=== PATIENT | female | born 1985 | race Caucasian/White ===

== ENCOUNTER 2020-11-29 10:25 | Inpatient (IN) | payer OTHER ==
[2020-11-29] MEDS ORDERED: LORazepam 2 MG/ML INJ IV PRN (10:55)
[2020-11-29] MEDS ORDERED: THIAMINE 100 MG/ML 2 ML VIAL IM STA (10:55)
[2020-11-29] MEDS ORDERED: LORazepam 2 MG/ML INJ IV STA (11:01)
[2020-11-29] MEDS ORDERED: SODIUM CHLORIDE 0.9% 1,000 ML IV STA (11:01)
--- NOTE | 2020-11-29 11:03 | ED ---
General Adult HPI - General Chief complaint: Psychiatric Symptoms Stated complaint: depression Time Seen by Provider: 11/29/20 10:33 Source: patient Mode of arrival: ambulatory Limitations: no limitations - History of Present Illness Initial comments: Dictation was produced using [employer] dictation software. please excuse any grammatical, word or spelling errors. Chief Complaint: 35-year-old female presents emergency department for alcohol withdrawal History of Present Illness: 35-year-old female she drinks a fifth of vodka daily for the last several years. She went to her parents, days ago to try and get some help to quit drinking. Patient states he tried to quit cold turkey. Her last alcohol intake was 2 hours ago. She called EMS. There is concern that perhaps patient had a seizure today. Patient has decreased appetite. Patient has some mild anterior chest pain that is worse with deep inspiration, movement and palpation to the area. The ROS documented in this emergency department record has been reviewed and co nfirmed by me. Those systems with pertinent positive or negative responses have been documented in the HPI. All other systems are other negative and/or noncontributory. PHYSICAL EXAM: General Impression: Alert and oriented x3, not in acute distress, tremulous HEENT: Normocephalic atraumatic, extra-ocular movements intact, pupils equal and reactive to light bilaterally, mucous membranes moist. Cardiovascular: Tachycardic Chest: Able to complete full sentences, no retractions, no tachypnea, tenderness to palpation of the left anterior chest Abdomen: abdomen soft, non-tender, non-distended, no organomegaly Musculoskeletal: Pulses present and equal in all extremities, no peripheral edema Motor: no focal deficits noted Neurological: CN II-XII grossly intact, no focal motor or sensory deficits noted Skin: Intact with no visualized rashes Psych: Normal affect and mood ED course: 35-year-old female presents to the emergency department for alcohol withdrawal symptoms and musculoskeletal chest pain. Vital signs upon arrival shows heart rate of 135, rest of vital signs within acceptable limits. Patient showing signs of withdrawal at the bedside. Laboratory evaluation obtained. CBC is unremarkable. Metabolic panel shows sodium 129, potassium 2.5. Patient started intravenous fluids and given parenteral potassium. Rest of labs unremarkable. Patient given Valium. Patient's improved at the bedside. Patient be admitted for alcohol withdrawal. EKG interpretation: Ventricular rate 1:30, sinus tachycardia, ID interval 1:30, QRS 82, QTc 463. No ID prolongation, no ST or T-wave changes noted. - Related Data Home Medications Medication Instructions Recorded Confirmed No Known Home Medications 11/29/20 11/29/20 Allergies Allergy/AdvReac Type Severity Reaction Status Date / Time No Known Allergies Allergy Verified 11/29/20 12:08 Review of Systems ROS Statement: Those systems with pertinent positive or pertinent negative responses have been documented in the HPI. ROS Other: All systems not noted in ROS Statement are negative. Past Medical History Past Medical History: No Reported History Past Surgical History: No Surgical Hx Reported Past Psychological History: Depression Smoking Status: Never smoker Past Alcohol Use History: Abuse, Daily Past Drug Use History: Marijuana General Exam Limitations: no limitations Course Vital Signs 11/29/20 11/29/20 11/29/20 10:29 11:30 12:00 Temperature 98.8 F Pulse Rate 135 H 135 H 144 H Respiratory 18 25 H 21 Rate Blood Pressure 144/112 122/88 133/102 O2 Sat by Pulse 98 95 96 Oximetry 11/29/20 12:30 Temperature Pulse Rate 138 H Respiratory 22 Rate Blood Pressure 135/107 O2 Sat by Pulse 94 L Oximetry Medical Decision Making - Lab Data Result diagrams: 11/29/20 11:32 11/29/20 11:32 Lab Results 11/29/20 11/29/20 Range/Units 11:32 11:32 WBC 6.6 (3.8-10.6) k/uL RBC 4.59 (3.80-5.40) m/uL Hgb 15.7 (11.4-16.0) gm/dL Hct 45.7 (34.0-46.0) % MCV 99.7 (80.0-100.0) fL MCH 34.2 (25.0-35.0) pg MCHC 34.3 (31.0-37.0) g/dL RDW 14.4 (11.5-15.5) % Plt Count 180 (150-450) k/uL MPV 10.9 Neutrophils % 84 % Lymphocytes % 8 % Monocytes % 7 % Eosinophils % 0 % Basophils % 0 % Neutrophils # 5.6 (1.3-7.7) k/uL Lymphocytes # 0.5 L (1.0-4.8) k/uL Monocytes # 0.5 (0-1.0) k/uL Eosinophils # 0.0 (0-0.7) k/uL Basophils # 0.0 (0-0.2) k/uL Macrocytosis Slight Sodium 129 L (137-145) mmol/L Potassium 2.5 L* (3.5-5.1) mmol/L Chloride 82 L (98-107) mmol/L Carbon Dioxide 30 (22-30) mmol/L Anion Gap 17 mmol/L BUN 11 (7-17) mg/dL Creatinine 0.73 (0.52-1.04) mg/dL Est GFR (CKD-EPI)AfAm >90 (>60 ml/min/1.73 sqM) Est GFR (CKD-EPI)NonAf >90 (>60 ml/min/1.73 sqM) Glucose 142 H (74-99) mg/dL Calcium 9.8 (8.4-10.2) mg/dL HCG, Quant <2.4 mIU/mL Serum Alcohol <10 mg/dL Disposition Clinical Impression: Alcohol withdrawal syndrome Disposition: ADMITTED IP TO THIS [facility] Condition: Fair Referrals: None,Stated [Primary Care Provider] - 1-2 days
[2020-11-29 11:50] LABS: Basophils % (A) 0 %; Eosinophils % (A) 0 %; HCT 45.7 % (34.0-46.0); HGB 15.7 gm/dL (11.4-16.0); Lymphocytes # (A) 0.5 k/uL (1.0-4.8); Lymphocytes % (A) 8 %; MCH 34.2 pg (25.0-35.0); MCHC 34.3 g/dL (31.0-37.0); MCV 99.7 fL (80.0-100.0); Macrocytosis Slight; Mean Platelet Volume 10.9; Monocytes # (A) 0.5 k/uL (0-1.0); Monocytes % (A) 7 %; Neutrophils # (A) 5.6 k/uL (1.3-7.7); Neutrophils % (A) 84 %; Platelet Count 180 k/uL (150-450); RBC 4.59 m/uL (3.80-5.40); RDW 14.4 % (11.5-15.5); WBC 6.6 k/uL (3.8-10.6)
[2020-11-29 12:13] LABS: African American GFR (CKD) >90 (>60 ml/min/1.73 sqM); Alcohol <10 mg/dL; Anion Gap 17 mmol/L; Blood Urea Nitrogen 11 mg/dL (7-17); Calcium 9.8 mg/dL (8.4-10.2); Carbon Dioxide 30 mmol/L (22-30); Chloride 82 mmol/L (98-107); Glucose 142 mg/dL (74-99); Non-African American GFR(CKD) >90 (>60 ml/min/1.73 sqM); Sodium 129 mmol/L (137-145)
[2020-11-29 12:28] LABS: HCG,Quantitative Serum <2.4 mIU/mL
[2020-11-29 12:34] LABS: Potassium 2.5 mmol/L (3.5-5.1)
[2020-11-29] MEDS ORDERED: NALOXONE 0.4 MG/ML 1 ML VIAL IV PRN (13:14)
[2020-11-29] MEDS: SODIUM CHLORIDE 0.9% 1,000 ML IV SCH ×2 (13:45→20:45)
[2020-11-29] MEDS: LORazepam 2 MG/ML INJ IV PRN ×2 (13:52→18:10)
[2020-11-29] MEDS: POTASSIUM CHLORIDE 20 MEQ in WATER FOR INJECTION 1 100ML.BAG IVPB SCH ×2 (13:52→20:45)
[2020-11-29] MEDS ORDERED: POTASSIUM CHLORIDE ER 20 MEQ TAB.ER PO STA (14:30)
[2020-11-29] MEDS: THIAMINE 100 MG TAB PO SCH (18:10)
--- NOTE | 2020-11-29 18:14 | P.HPIM ---
History of Present Illness H&P Date: 11/29/20 Chief Complaint: ETOH withdrawal 35 year old woman with history of ETOH abuse presented with nausea, vomiting. Patient says that she has been drinking excessively this year, about 1 pint of hard liquor daily. She has been quite depressed which is driving her alcohol abuse. Two days ago she stopped drinking cold turkey in an attempt to quit drinking, and then started to develop nausea, vomiting symptoms. She has not been able to keep any food down because of this. She has also felt anxious and jittery. She reports burning chest pain, but denies fevers, chills, palps, syncope, presyncope, abd pain, diarrhea, constipation, dysuria, dyschezia, numbness/weakness. In the ER, she is afebrile, tachycardic to 140s with EKG in sinus rhythm. Labs remarkable for hypokalemia to 2.5, hyponatremia. No LFTs were drawn. Review of Systems All Systems reviewed and pertinent positives and negatives noted in HPI, all other symptoms are negative Past Medical History Past Medical History: No Reported History History of Any Multi-Drug Resistant Organisms: None Reported Past Surgical History: No Surgical Hx Reported Past Anesthesia/Blood Transfusion Reactions: No Reported Reaction Past Psychological History: Depression Smoking Status: Never smoker Past Alcohol Use History: Abuse, Daily Past Drug Use History: Marijuana - Past Family History Father Family Medical History: Hyperlipidemia Medications and Allergies Home Medications Medication Instructions Recorded Confirmed Type No Known Home Medications 11/29/20 11/29/20 History Allergies Allergy/AdvReac Type Severity Reaction Status Date / Time No Known Allergies Allergy Verified 11/29/20 12:08 Physical Exam Osteopathic Statement: *. No significant issues noted on an osteopathic str uctural exam other than those noted in the History and Physical/Consult. Vitals: Vital Signs Temp Pulse Pulse Resp BP BP Pulse Ox 11/29/20 17:30 98.5 F 145 H 16 120/87 94 L 11/29/20 16:21 137 H 18 135/99 94 L 11/29/20 13:30 144 H 18 135/96 91 L 11/29/20 13:00 140 H 22 128/100 92 L 11/29/20 12:30 138 H 22 135/107 94 L 11/29/20 12:00 144 H 21 133/102 96 11/29/20 11:30 135 H 25 H 122/88 95 11/29/20 10:29 98.8 F 135 H 18 144/112 98 Intake and Output 11/29/20 11/29/20 11/29/20 06:59 14:59 22:59 Intake Total 236 Balance 236 Intake: Oral 236 Other: # Voids 1 Weight 81.647 kg 81.647 kg Gen: awake, alert HEENT: normocephalic, atraumatic, good hearing acuity, moist mucous membranes Resp: good air exchange, breathing comfortably with no accessory muscle use, clear to auscultation bilaterally without wheezes or crackles CVS: good distal perfusion x 4, regular rhythm, tachycardic, no murmurs GI: soft, NTTP, ND : no SPT, no CVAT, page catheter not present MSK: no pitting edema, no clubbing Neuro: non-focal, moving all extremities Psych: cooperative, euthymic mood Results CBC & Chem 7: 11/29/20 11:32 11/29/20 11:32 Labs: Abnormal Lab Results - Last 24 Hours (Table) 11/29/20 11/29/20 Range/Units 11:32 11:32 Lymphocytes # 0.5 L (1.0-4.8) k/uL Sodium 129 L (137-145) mmol/L Potassium 2.5 L* (3.5-5.1) mmol/L Chloride 82 L (98-107) mmol/L Glucose 142 H (74-99) mg/dL Thrombosis Risk Factor Assmnt - Choose All That Apply Any of the Below Risk Factors Present?: No Other Risk Factors: No Thrombosis Risk Factor Assessment Level: Very Low Risk Assessment and Plan Assessment: Alcohol withdrawal syndrome Alcohol abuse disorder -Admit to observation, telemetry -CIWA protocol + Ativan when necessary -Thiamine, folate, multivitamin -Alcohol cessation education -LFTs, pending Hypokalemia Hyponatremia -Replete and monitor daily Depression -Outpatient follow-up for initiation of SSRI Patient is full code DVT prophylaxis not indicated
[2020-11-29 19:30] LABS: Albumin/Globulin Ratio 1.2; Bilirubin, Conjugated 1.4 mg/dL (0.0-0.3); Bilirubin,Unconjugated 1.5 mg/dL (0.0-1.1); Globulin 3.4 g/dL; Total Bilirubin 4.3 mg/dL (0.2-1.3); Total Protein 7.4 g/dL (6.3-8.2)
[2020-11-29 23:51] LABS: ALT 96 U/L (4-34); AST 287 U/L (14-36); African American GFR (CKD) >90 (>60 ml/min/1.73 sqM); Albumin 3.2 g/dL (3.5-5.0); Albumin/Globulin Ratio 1.1; Alkaline Phosphatase 175 U/L (38-126); Anion Gap 5 mmol/L; Blood Urea Nitrogen 13 mg/dL (7-17); Calcium 9.1 mg/dL (8.4-10.2); Carbon Dioxide 34 mmol/L (22-30); Chloride 89 mmol/L (98-107); Globulin 2.9 g/dL; Glucose 85 mg/dL (74-99); Non-African American GFR(CKD) >90 (>60 ml/min/1.73 sqM); Sodium 128 mmol/L (137-145); Total Bilirubin 3.8 mg/dL (0.2-1.3); Total Protein 6.1 g/dL (6.3-8.2)
[2020-11-29] MEDS ORDERED: Potassium Replacement Protocol 1 EACH MISC MISCELLANE PRN (23:57)
[2020-11-30] MEDS: POTASSIUM CHLORIDE ER 20 MEQ TAB.ER PO SCH ×5 (00:57→08:40)
[2020-11-30] MEDS: LORazepam 2 MG/ML INJ IV PRN ×3 (02:57→22:28)
[2020-11-30 04:39] LABS: ALT 89 U/L (4-34); AST 249 U/L (14-36); African American GFR (CKD) >90 (>60 ml/min/1.73 sqM); Albumin/Globulin Ratio 1.1; Alkaline Phosphatase 161 U/L (38-126); Anion Gap 5 mmol/L; Blood Urea Nitrogen 11 mg/dL (7-17); Calcium 8.8 mg/dL (8.4-10.2); Carbon Dioxide 32 mmol/L (22-30); Chloride 92 mmol/L (98-107); Globulin 2.8 g/dL; Glucose 79 mg/dL (74-99); Non-African American GFR(CKD) >90 (>60 ml/min/1.73 sqM); Potassium 2.8 mmol/L (3.5-5.1); Sodium 129 mmol/L (137-145); Total Bilirubin 3.5 mg/dL (0.2-1.3); Total Protein 5.8 g/dL (6.3-8.2)
[2020-11-30] MEDS ORDERED: Potassium Replacement Protocol 1 EACH MISC MISCELLANE PRN (04:52)
[2020-11-30] MEDS: SODIUM CHLORIDE 0.9% 1,000 ML IV SCH ×3 (05:16→20:41)
--- NOTE | 2020-11-30 08:38 | US ---
EXAMINATION TYPE: US abdomen complete DATE OF EXAM: 11/30/2020 COMPARISON: NONE CLINICAL HISTORY: RUQ pain, ETOH hepatitis suspected. EXAM MEASUREMENTS: Liver Length: 18.3 cm Gallbladder Wall: 0.2 cm CBD: 0.5 cm Spleen: 7.9 cm Right Kidney: 11.6 x 4.1 x 5.1 cm Left Kidney: 11.5 x 5.1 x 5.3 cm Pancreas: visualized portions wnl Liver: enlarged, difficult to penetrate Gallbladder: stone with shadowing, sluldge noted Evidence for sonographic Ojeda's sign: No CBD: wnl Spleen: wnl Right Kidney: No hydronephrosis or masses seen Left Kidney: No hydronephrosis or masses seen Upper IVC: wnl Abd Aorta: wnl There is diffuse echogenicity of the liver and the liver is mildly enlarged. There is no focal intrah epatic mass.. The intrahepatic portion of the IVC and proximal abdominal aorta are within normal limits. There is a gallstone but the gallbladder is not distended and the wall the gallbladder is not thickened. There is no biliary ductal dilatation.. The visualized portions of the pancreas are homogenous. The spleen is unremarkable. Kidneys are sym metric and free of hydronephrosis. No renal lesions are seen. IMPRESSION: 1. Cholelithiasis. 2. Mild hepatomegaly with diffuse increased echogenicity within the liver but no focal liver mass.
[2020-11-30] MEDS: LACTATED RINGERS 1,000 ML IV SCH ×5 (08:40→17:30)
[2020-11-30] MEDS: THIAMINE 100 MG TAB PO SCH ×2 (08:40→17:33)
--- NOTE | 2020-11-30 10:37 | P.PN ---
Subjective Progress Note Date: 11/30/20 Pt doing well today. No complaints. HRs improving. No pain. Objective - Vital Signs Vital signs: Vital Signs Temp 98.3 F 11/30/20 07:33 Pulse 118 H 11/30/20 08:00 Resp 19 11/30/20 08:00 BP 147/78 11/30/20 07:33 Pulse Ox 97 11/30/20 07:33 Intake & Output 11/29/20 11/30/20 11/30/20 18:59 06:59 18:59 Intake Total 236 Balance 236 Weight 81.647 kg Intake: Oral 236 Other: Voiding Method Toilet Toilet # Voids 1 2 2 - Exam Gen: awake, alert HEENT: normocephalic, atraumatic, good hearing acuity, moist mucous membranes Resp: good air exchange, breathing comfortably with no accessory muscle use, clear to auscultation bilaterally without wheezes or crackles CVS: good distal perfusion x 4, regular rhythm, tachycardic, no murmurs GI: soft, NTTP, ND : no SPT, no CVAT, page catheter not present MSK: no pitting edema, no clubbing Neuro: non-focal, moving all extremities Psych: cooperative, euthymic mood - Labs CBC & Chem 7: 11/29/20 11:32 11/30/20 03:52 Labs: Abnormal Lab Results - Last 24 Hours (Table) 11/29/20 11/29/20 11/29/20 Range/Units 11:32 11:32 11:32 Lymphocytes # 0.5 L (1.0-4.8) k/uL Sodium 129 L (137-145) mmol/L Potassium 2.5 L* (3.5-5.1) mmol/L Chloride 82 L (98-107) mmol/L Carbon Dioxide (22-30) mmol/L Glucose 142 H (74-99) mg/dL Total Bilirubin 4.3 H (0.2-1.3) mg/dL Conjugated Bilirubin 1.4 H (0.0-0.3) mg/dL Unconjugated Bilirubin 1.5 H (0.0-1.1) mg/dL AST 503 H (14-36) U/L ALT 121 H (4-34) U/L Alkaline Phosphatase 238 H (38-126) U/L Total Protein (6.3-8.2) g/dL Albumin (3.5-5.0) g/dL 11/29/20 11/30/20 Range/Units 23:18 03:52 Lymphocytes # (1.0-4.8) k/uL Sodium 128 L 129 L (137-145) mmol/L Potassium 3.0 L 2.8 L (3.5-5.1) mmol/L Chloride 89 L 92 L (98-107) mmol/L Carbon Dioxide 34 H 32 H (22-30) mmol/L Glucose (74-99) mg/dL Total Bilirubin 3.8 H 3.5 H (0.2-1.3) mg/dL Conjugated Bilirubin (0.0-0.3) mg/dL Unconjugated Bilirubin (0.0-1.1) mg/dL AST 287 H 249 H (14-36) U/L ALT 96 H 89 H (4-34) U/L Alkaline Phosphatase 175 H 161 H (38-126) U/L Total Protein 6.1 L 5.8 L (6.3-8.2) g/dL Albumin 3.2 L 3.0 L (3.5-5.0) g/dL Assessment and Plan Assessment: Alcohol withdrawal syndrome Alcohol abuse disorder Alcoholic Hepatitis -Admit to observation, telemetry -[facility] protocol + Ativan when necessary -Thiamine, folate, multivitamin -Alcohol cessation education -LFTs show elevated liver enzymes in cholestatic pattern with elevated bilirubin -RUQ US demonstrates increased echogenicity and size of the liver Hypokalemia Hyponatremia -Replete and monitor daily Depression -Outpatient follow-up for initiation of SSRI Patient is full code DVT prophylaxis not indicated
[2020-11-30] MEDS ORDERED: LACTATED RINGERS 1,000 ML IV SCH (17:30)
[2020-11-30] MEDS ORDERED: SODIUM CHLORIDE 0.9% 1,000 ML IV ONE (20:32)
[2020-11-30 23:07] LABS: ALT 85 U/L (4-34); AST 257 U/L (14-36); African American GFR (CKD) >90 (>60 ml/min/1.73 sqM); Albumin 3.3 g/dL (3.5-5.0); Albumin/Globulin Ratio 1.1; Alkaline Phosphatase 183 U/L (38-126); Anion Gap 6 mmol/L; Blood Urea Nitrogen 6 mg/dL (7-17); Calcium 9.1 mg/dL (8.4-10.2); Carbon Dioxide 29 mmol/L (22-30); Chloride 97 mmol/L (98-107); Glucose 105 mg/dL (74-99); Magnesium 1.4 mg/dL (1.6-2.3); Non-African American GFR(CKD) >90 (>60 ml/min/1.73 sqM); Potassium 3.3 mmol/L (3.5-5.1); Sodium 132 mmol/L (137-145); Total Protein 6.3 g/dL (6.3-8.2)
[2020-12-01] MEDS: POTASSIUM CHLORIDE ER 20 MEQ TAB.ER PO SCH ×2 (00:22→01:39)
[2020-12-01] MEDS: MAGNESIUM SULFATE-D5W PMX 1 GM in DEXTROSE/WATER 1 100ML.BAG IVPB SCH ×3 (00:22→03:12)
[2020-12-01] MEDS: LORazepam 2 MG/ML INJ IV PRN ×2 (00:23→05:31)
[2020-12-01] MEDS: SODIUM CHLORIDE 0.9% 1,000 ML IV SCH ×2 (03:12→07:38)
[2020-12-01 05:57] LABS: ALT 74 U/L (4-34); AST 245 U/L (14-36); African American GFR (CKD) >90 (>60 ml/min/1.73 sqM); Alkaline Phosphatase 180 U/L (38-126); Anion Gap 6 mmol/L; Blood Urea Nitrogen 4 mg/dL (7-17); Calcium 8.2 mg/dL (8.4-10.2); Carbon Dioxide 28 mmol/L (22-30); Chloride 96 mmol/L (98-107); Globulin 2.9 g/dL; Glucose 111 mg/dL (74-99); Magnesium 2.5 mg/dL (1.6-2.3); Non-African American GFR(CKD) >90 (>60 ml/min/1.73 sqM); Potassium 3.3 mmol/L (3.5-5.1); Sodium 130 mmol/L (137-145); Total Bilirubin 3.5 mg/dL (0.2-1.3); Total Protein 5.9 g/dL (6.3-8.2)
[2020-12-01] MEDS: THIAMINE 100 MG TAB PO SCH ×2 (07:38→17:11)
[2020-12-01] MEDS ORDERED: ASPIRIN 325 MG TAB PO STA (09:56)
[2020-12-01] MEDS ORDERED: HEPARIN SODIUM 1,000 UN/ML (10ML VL) IV ONE (09:57)
[2020-12-01] MEDS ORDERED: HEPARIN SODIUM 1,000 UN/ML (10ML VL) IV PRN (09:57)
[2020-12-01] MEDS: METOPROLOL TARTRATE 25 MG TAB PO SCH ×2 (10:18→19:41)
[2020-12-01] MEDS: HEPARIN SOD,PORK IN 0.45% NACL 25,000 UNIT in 0.45% NACL 1 250ML.BAG IV SCH (10:19)
[2020-12-01 11:05] LABS: Basophils % (A) 0 %; Eosinophils % (A) 0 %; HCT 40.8 % (34.0-46.0); HGB 14.2 gm/dL (11.4-16.0); Lymphocytes # (A) 1.6 k/uL (1.0-4.8); Lymphocytes % (A) 21 %; MCHC 34.7 g/dL (31.0-37.0); MCV 101.1 fL (80.0-100.0); Macrocytosis Slight; Mean Platelet Volume 10.2; Monocytes # (A) 0.4 k/uL (0-1.0); Monocytes % (A) 6 %; Neutrophils # (A) 5.4 k/uL (1.3-7.7); Neutrophils % (A) 71 %; Platelet Count 155 k/uL (150-450); RBC 4.04 m/uL (3.80-5.40); RDW 15.5 % (11.5-15.5); WBC 7.6 k/uL (3.8-10.6)
[2020-12-01 11:30] LABS: INR 1.4 (<1.2); Prothrombin Time 13.9 sec (9.0-12.0)
[2020-12-01 11:52] LABS: Partial Thromboplastin Time >200.0 sec (22.0-30.0)
--- NOTE | 2020-12-01 13:16 | P.PN ---
Subjective Progress Note Date: 12/01/20 No new complaints, no symptoms other than mild cough. No chest pain. No palps, no dyspnea. Still tachy to 140s at rest. EKG with TWI in lateral leads. ASA loaded, statin, betablocker, echo, cardiology consult. Objective - Vital Signs Vital signs: Vital Signs Temp 99.2 F 12/01/20 07:12 Pulse 137 H 12/01/20 08:00 Resp 18 12/01/20 08:00 BP 135/87 12/01/20 07:12 Pulse Ox 93 L 12/01/20 07:12 Intake & Output 11/30/20 12/01/20 12/01/20 18:59 06:59 18:59 Intake Total 29.637 Balance 29.637 Intake: Intake, IV Titration 29.637 Amount Heparin Sod,Pork in 0.45% 29.637 NaCl 25,000 unit In 0.45 % NaCl 1 250ml.bag @ 18 UNITS/KG/HR 14.696 mls/hr IV .Q17H1M [facility] Rx#: [id number] Other: Voiding Method Toilet Toilet Toilet # Voids 2 2 - Exam Gen: awake, alert HEENT: normocephalic, atraumatic, good hearing acuity, moist mucous membranes Resp: good air exchange, breathing comfortably with no accessory muscle use, clear to auscultation bilaterally without wheezes or crackles CVS: good distal perfusion x 4, regular rhythm, tachycardic, no murmurs GI: soft, NTTP, ND : no SPT, no CVAT, page catheter not present MSK: no pitting edema, no clubbing Neuro: non-focal, moving all extremities Psych: cooperative, euthymic mood - Labs CBC & Chem 7: 12/01/20 10:32 12/01/20 05:21 Labs: Abnormal Lab Results - Last 24 Hours (Table) 11/30/20 12/01/20 12/01/20 Range/Units 22:26 05:21 10:32 MCV 101.1 H (80.0-100.0) fL PT (9.0-12.0) sec INR (<1.2) APTT (22.0-30.0) sec Sodium 132 L 130 L (137-145) mmol/L Potassium 3.3 L 3.3 L (3.5-5.1) mmol/L Chloride 97 L 96 L (98-107) mmol/L BUN 6 L 4 L (7-17) mg/dL Glucose 105 H 111 H (74-99) mg/dL Calcium 8.2 L (8.4-10.2) mg/dL Magnesium 1.4 L 2.5 H (1.6-2.3) mg/dL Total Bilirubin 4.0 H 3.5 H (0.2-1.3) mg/dL AST 257 H 245 H (14-36) U/L ALT 85 H 74 H (4-34) U/L Alkaline Phosphatase 183 H 180 H (38-126) U/L Troponin I (0.000-0.034) ng/mL Total Protein 5.9 L (6.3-8.2) g/dL Albumin 3.3 L 3.0 L (3.5-5.0) g/dL 12/01/20 12/01/20 Range/Units 10:32 10:32 MCV (80.0-100.0) fL PT 13.9 H (9.0-12.0) sec INR 1.4 H (<1.2) APTT >200.0 H* (22.0-30.0) sec Sodium (137-145) mmol/L Potassium (3.5-5.1) mmol/L Chloride (98-107) mmol/L BUN (7-17) mg/dL Glucose (74-99) mg/dL Calcium (8.4-10.2) mg/dL Magnesium (1.6-2.3) mg/dL Total Bilirubin (0.2-1.3) mg/dL AST (14-36) U/L ALT (4-34) U/L Alkaline Phosphatase (38-126) U/L Troponin I 0.394 H* (0.000-0.034) ng/mL Total Protein (6.3-8.2) g/dL Albumin (3.5-5.0) g/dL Assessment and Plan Assessment: Sinus Tachycardia Elevated Troponin -monitor on telemetry, transfer to -cardiology consulted -trend troponins -ASA loaded, statin -heparin gtt -echo pending -EKG/Nitro PRN Alcohol withdrawal syndrome Alcohol abuse disorder Alcoholic Hepatitis -Admit to observation, telemetry -CIWA protocol + Ativan when necessary -Thiamine, folate, multivitamin -Alcohol cessation education -LFTs show elevated liver enzymes in cholestatic pattern with elevated bilirubin -RUQ US demonstrates increased echogenicity and size of the liver Hypokalemia Hyponatremia -Replete and monitor daily Depression -Outpatient follow-up for initiation of SSRI Patient is full code DVT prophylaxis not indicated
--- NOTE | 2020-12-01 13:41 | ECHOF ---
Referral Reason:abnormal EKG MEASUREMENTS -------- HEIGHT: 170.2 cm WEIGHT: 81.6 kg BP: 135/87 RVIDd: 2.5 cm (< 3.3) IVSd: 1.3 cm (0.6 - 1.1) LVIDd: 4.5 cm (3.9 - 5.3) LVPWd: 1.2 cm (0.6 - 1.1) IVSs: 1.7 cm LVIDs: 3.9 cm LVPWs: 1.7 cm LA Diam: 3.2 cm (2.7 - 3.8) LAESV Index (A-L): 18.76 ml/m Ao Diam: 3.2 cm (2.0 - 3.7) AV Cusp: 2.1 cm (1.5 - 2.6) MV EXCURSION: 21.866 mm (> 18.000) MV EF SLOPE: 279 mm/s (70 - 150) EPSS: 0.9 cm MV E Miles: 0.87 m/s MV DecT: 117 ms MV A Miles: 0.61 m/s MV E/A Ratio: 1.42 FINDINGS -------- Resting tachycardia (HR>100bpm). This was a technically adequate study. The left ventricular size is normal. There is mild concentric left ventricular hypertrophy. Overa ll left ventricular systolic function is severely impaired with, an EF < 20%. Predominanty apical h ypokinesis with basal sparing which may be seen in Takotsubo's cardiomyopathy. Clinical correlation recommended. Mid anterior LV wall motion is hypokinetic. Mid lateral LV wall motion is hypokine tic. Mid posterior LV wall motion is hypokinetic. Mid inferior LV wall motion is hypokinetic. Apical anterior LV wall motion is hypokinetic. Apical lateral LV wall motion is hypokinetic. Apical inferior LV wall motion is hypokinetic. Apical septum LV wall motion is hypokinetic. The right ventricle is normal in size. Normal LA size by volume 22+/-6 ml/m2. The right atrium is normal in size. Trace to mild aortic regurgitation. The mitral valve is normal. The tricuspid valve appears structurally normal. There is no pulmonic regurgitation present. The aortic root size is normal. Normal inferior vena cava with normal inspiratory collapse consistent with estimated right atrial pre ssure of 5 mmHg. There is no pericardial effusion. CONCLUSIONS -------- 1. The left ventricular size is normal. 2. There is mild concentric left ventricular hypertrophy. 3. Overall left ventricular systolic function is severely impaired with, an EF < 20%. 4. Predominanty apical hypokinesis with basal sparing which may be seen in Takotsubo's cardiomyopathy . Clinical correlation recommended. 5. Mid anterior LV wall motion is hypokinetic. 6. Mid lateral LV wall motion is hypokinetic. 7. Mid posterior LV wall motion is hypokinetic. 8. Mid inferior LV wall motion is hypokinetic. 9. Apical anterior LV wall motion is hypokinetic. 10. Apical lateral LV wall motion is hypokinetic. 11. Apical inferior LV wall motion is hypokinetic. 12. Apical septum LV wall motion is hypokinetic. 13. Trace to mild aortic regurgitation. 14. There is no pericardial effusion. RN DOCUMENT IMPROVEMENT: Randa Carlson RDCS
[2020-12-01] MEDS: FOLIC ACID 1 MG TAB PO SCH (17:11)
--- NOTE | 2020-12-01 18:08 | XR ---
EXAMINATION TYPE: XR chest 1V DATE OF EXAM: 12/01/2020 COMPARISON: NONE HISTORY: Abnormal cardiogram TECHNIQUE: Single view FINDINGS: There is no heart failure nor confluent pneumonic infiltrate. There is poor inspiration. Th ere is some elevation of the right diaphragm. There are chest leads. IMPRESSION: Mild subsegmental atelectasis right lung base. No obvious heart failure.
[2020-12-01] MEDS: ATORVASTATIN 40 MG TAB PO SCH (19:41)
[2020-12-01] MEDS ORDERED: METOPROLOL TARTRATE 12.5 MG TAB PO STA (21:30)
[2020-12-02] MEDS: HEPARIN SOD,PORK IN 0.45% NACL 25,000 UNIT in 0.45% NACL 1 250ML.BAG IV SCH ×2 (04:47→20:30)
[2020-12-02] MEDS: THIAMINE 100 MG TAB PO SCH ×2 (06:55→18:45)
[2020-12-02 08:20] LABS: HCT 41.3 % (34.0-46.0); HGB 13.8 gm/dL (11.4-16.0); MCH 35.1 pg (25.0-35.0); MCHC 33.5 g/dL (31.0-37.0); MCV 104.7 fL (80.0-100.0); Macrocytosis Moderate; Mean Platelet Volume 9.4; Platelet Count 139 k/uL (150-450); RBC 3.94 m/uL (3.80-5.40); WBC 5.7 k/uL (3.8-10.6)
[2020-12-02] MEDS: METOPROLOL TARTRATE 50 MG TAB PO SCH ×2 (08:27→21:59)
[2020-12-02] MEDS: FOLIC ACID 1 MG TAB PO SCH (08:27)
[2020-12-02] MEDS: LOSARTAN 25 MG TAB PO SCH (08:27)
[2020-12-02] MEDS: ASPIRIN 81 MG PO SCH (08:27)
--- NOTE | 2020-12-02 09:45 | P.CRDCN ---
History of Present Illness Consult date: 12/02/20 History of present illness: HISTORY OF PRESENT ILLNESS: This is a 35 year old female with a past medical history significant for alcohol abuse. Patient denies a previous cardiac history and does not see a merry go round attendant. We have been asked to see the patient in consultation for abnormal EKG. Patient examined at the bedside. Patient is admitted to the hospital secondary to alcohol withdrawal. Patient reports she usually drinks a fifth of Vodka daily. Her last drink was last Tuesday. Patient currently denies chest pain or pressure. She denies shortness of breath. She denies palpitations. Telemetry reveals atrial tachycardia. Echocardiogram completed reveals ejection fraction less than 20%, predominantly apical hypokinesis with basal sparing which may be Takotsubo cardiomyopathy, LV wall hypokinesis, and trace to mild aortic regurgitation. Chest x-ray reveals mild subsegmental atelectasis right lung base. No obvious heart failure. Laboratory data reveals WBC 5.7. Hemoglobin 13.8. Platelet count 139. Sodium 130. Potassium 3.3. BUN 4. Creatinine 0.62. Magnesium 2.5. AST 245. ALT 74. Troponin 0.394. 0.354. 0.361. Patient does not take any cardiac medications on an outpatient basis. She denies a family history of premature coronary artery disease REVIEW OF SYSTEMS: At the time of my exam: CONSTITUTIONAL: Denies fever or chills. HEENT: Denies blurred vision, vision changes, or eye pain. Denies hemoptysis CARDIOVASCULAR: Denies chest pain. Denies orthopnea. Denies PND. Denies palpitations RESPIRATORY: Denies shortness of breath. GASTROINTESTINAL: Denies abdominal pain. Denies nausea or vomiting. HEMATOLOGIC: Denies bleeding disorders. GENITOURINARY: Denies any blood in urine. SKIN: Denies pruitis. Denies rash. PHYSICAL EXAM: VITAL SIGNS: Reviewed. GENERAL: Well-developed in no acute distress. HEENT: Head is normocephalic. Pupils are equal, round. Sclerae anicteric. Mucous membranes of the mouth are moist. Neck supple. No JVD or thyromegaly LUNGS: Respirations even and unlabored. Lungs essentially clear to auscultation bilaterally. HEART: Tachycardic. Regular rate and rhythm. S1 and S2 heard. ABDOMEN: Soft. Nondistended. Nontender. EXTREMITIES: Normal range of motion. No clubbing or cyanosis. Peripheral pulses intact. No lower extremity edema NEUROLOGIC: Awake and alert. Oriented x 3. ASSESSMENT: Alcohol withdrawal disorder History of alcohol abuse Transaminitis NSTEMI, suspect Takotsubo cardiomyopathy Ectopic atrial tachycardia Hyponatremia Hypokalemia PLAN: Continue IV heparin Continue telemetry monitoring Continue current cardiac medications NPO at midnight Possible cardiac cath tomorrow with Dr. Loyola Further recommendations pending patient course Nurse practitioner note has been reviewed by physician. Signing provider agrees with the documented findings, assessment, and plan of care. Past Medical History Past Medical History: No Reported History History of Any Multi-Drug Resistant Organisms: None Reported Past Surgical History: No Surgical Hx Reported Past Anesthesia/Blood Transfusion Reactions: No Reported Reaction Past Psychological History: Depression Smoking Status: Never smoker Past Alcohol Use History: Abuse, Daily Past Drug Use History: Marijuana - Past Family History Father Family Medical History: Hyperlipidemia Medications and Allergies Home Medications Medication Instructions Recorded Confirmed Type No Known Home Medications 11/29/20 11/29/20 History Allergies Allergy/AdvReac Type Severity Reaction Status Date / Time No Known Allergies Allergy Verified 11/29/20 12:08 Physical Exam Vitals: Vital Signs Temp Pulse Resp BP Pulse Ox 12/02/20 04:40 98.4 F 126 H 18 121/78 95 12/02/20 00:05 98.4 F 119 H 17 111/77 95 12/01/20 19:30 98.3 F 132 H 18 120/91 99 12/01/20 16:00 137 H 111/74 98 12/01/20 13:00 132 H 105/87 95 Intake and Output 12/01/20 12/02/20 12/02/20 22:59 06:59 14:59 Intake Total 170.825 155.687 32.155 Balance 170.825 155.687 32.155 Intake: Intake, IV Titration 50.825 155.687 32.155 Amount Heparin Sod,Pork in 0.45% 50.825 155.687 32.155 NaCl 25,000 unit In 0.45 % NaCl 1 250ml.bag @ 18 UNITS/KG/HR 14.696 mls/hr IV .Q17H1M [facility] Rx#: [id number] Oral 120 Other: Voiding Method Toilet Toilet # Voids 1 1 Weight 88 kg Results 12/02/20 06:23 12/01/20 05:21 Cardiac Enzymes 12/01/20 12/01/20 12/01/20 Range/Units 10:32 14:00 16:54 Troponin I 0.394 H* 0.354 H* 0.361 H* (0.000-0.034) ng/mL Coagulation 12/01/20 12/01/20 12/01/20 Range/Units 10:32 16:54 23:41 PT 13.9 H (9.0-12.0) sec APTT >200.0 H* 37.5 H 46.5 H (22.0-30.0) sec 12/02/20 Range/Units 06:23 PT (9.0-12.0) sec APTT 57.5 H (22.0-30.0) sec CBC 12/01/20 12/02/20 Range/Units 10:32 06:23 WBC 7.6 5.7 (3.8-10.6) k/uL RBC 4.04 3.94 (3.80-5.40) m/uL Hgb 14.2 13.8 (11.4-16.0) gm/dL Hct 40.8 41.3 (34.0-46.0) % Plt Count 155 139 L (150-450) k/uL Current Medications Generic Name Dose Route Start Last Admin Trade Name Freq PRN Reason Stop Dose Admin Aspirin 81 mg 12/02/20 09:00 12/02/20 08:27 Aspirin 81 Mg PO 81 mg DAILY [facility] Administration Atorvastatin Calcium 40 mg 12/01/20 21:00 12/01/20 19:41 Atorvastatin 40 Mg Tab PO 40 mg HS F[facility]RICIO Administration Folic Acid 1 mg 12/01/20 15:00 12/02/20 08:27 Folic Acid 1 Mg Tab PO 1 mg DAILY FABRICIO Administration Heparin Sodium (Porcine) 0 unit 12/01/20 09:57 Heparin Sodium 1,000 Un/Ml (10ml Vl) IV PER PROTOCOL PRN Low PTT Protocol Heparin Sodium/Sodium Chloride 250 mls @ 14.696 mls/hr 12/01/20 10:00 12/02/20 07:06 25,000 unit/ Sodium Chloride IV 17 units/kg/hr .Q17H1M [facility] 13.88 mls/hr Titration Protocol 18 UNITS/KG/HR Lorazepam 1 mg 11/29/20 10:55 12/01/20 05:31 Lorazepam 2 Mg/Ml Inj IV 1 mg Q2HR PRN Administration CIWA 8 or 9 Lorazepam 1 mg 11/29/20 10:55 11/30/20 22:28 Lorazepam 2 Mg/Ml Inj IV 1 mg Q1HR PRN Administration CIWA 10 to 15 Losartan Potassium 12.5 mg 12/02/20 09:00 12/02/20 08:27 Losartan 25 Mg Tab PO 12.5 mg DAILY FABRICIO Administration Metoprolol Tartrate 50 mg 12/02/20 09:00 12/02/20 08:27 Metoprolol Tartrate 50 Mg Tab PO 50 mg BID F[facility]RICIO Administration Miscellaneous Information 1 each 11/29/20 23:57 Potassium Replacement Protocol 1 Each Misc MISCELLANE DAILY PRN Per Protocol Protocol Naloxone HCl 0.2 mg 11/29/20 13:14 Naloxone 0.4 Mg/Ml 1 Ml Vial IV Q2M PRN Opioid Reversal Thiamine HCl 100 mg 11/29/20 17:30 12/02/20 06:55 Thiamine 100 Mg Tab PO 100 mg BID-W/MEALS FABRICIO Administration Intake and Output 12/01/20 12/02/20 12/02/20 22:59 06:59 14:59 Intake Total 170.825 155.687 32.155 Balance 170.825 155.687 32.155 Intake: Intake, IV Titration 50.825 155.687 32.155 Amount Heparin Sod,Pork in 0.45% 50.825 155.687 32.155 NaCl 25,000 unit In 0.45 % NaCl 1 250ml.bag @ 18 UNITS/KG/HR 14.696 mls/hr IV .Q17H1M [facility] Rx#: [id number] Oral 120 Other: Voiding Method Toilet Toilet # Voids 1 1 Weight 88 kg 12/02/20 06:23 12/01/20 05:21
[2020-12-02 11:08] LABS: Eosinophils # (M) 0.06 k/uL (0-0.7); Lymphocytes # (M) 1.08 k/uL (1.0-4.8); Monocytes # (M) 0.23 k/uL (0-1.0); Neutrophils # (M) 4.33 k/uL (1.3-7.7); Neutrophils % (M) 76 %; Nucleated Red Blood Cells 0 /100 WBC (0-0); Total Cells Counted 100
--- NOTE | 2020-12-02 13:23 | P.PN ---
Subjective Progress Note Date: 12/02/20 No new complaints, No chest pain. No palps, no dyspnea. Still tachy to 130s at rest. Echo with EF < 20%; apical hypokinesis. Objective - Vital Signs Vital signs: Vital Signs Temp 98.2 F 12/02/20 08:00 Pulse 137 H 12/02/20 08:00 Resp 24 12/02/20 08:00 BP 118/90 12/02/20 08:00 Pulse Ox 93 L 12/02/20 08:00 Intake & Output 12/01/20 12/02/20 12/02/20 18:59 06:59 18:59 Intake Total 330.462 155.687 272.155 Balance 330.462 155.687 272.155 Weight 88 kg Intake: Intake, IV Titration 210.462 155.687 32.155 Amount Heparin Sod,Pork in 0.45% 80.462 155.687 32.155 NaCl 25,000 unit In 0.45 % NaCl 1 250ml.bag @ 18 UNITS/KG/HR 14.696 mls/hr IV .Q17H1M [facility] Rx#: [id number] Sodium Chloride 0.9% 1, 130 000 ml @ 130 mls/hr IV . Q7H42M [facility] Rx#:[id number] Oral 120 240 Other: Voiding Method Toilet Toilet # Voids 1 - Exam Gen: awake, alert HEENT: normocephalic, atraumatic, good hearing acuity, moist mucous membranes Resp: good air exchange, breathing comfortably with no accessory muscle use, clear to auscultation bilaterally without wheezes or crackles CVS: good distal perfusion x 4, regular rhythm, tachycardic, no murmurs GI: soft, NTTP, ND : no SPT, no CVAT, page catheter not present MSK: no pitting edema, no clubbing Neuro: non-focal, moving all extremities Psych: cooperative, euthymic mood - Labs CBC & Chem 7: 12/02/20 06:23 12/01/20 05:21 Labs: Abnormal Lab Results - Last 24 Hours (Table) 12/01/20 12/01/20 12/01/20 Range/Units 14:00 16:54 16:54 MCV (80.0-100.0) fL MCH (25.0-35.0) pg Plt Count (150-450) k/uL APTT 37.5 H (22.0-30.0) sec Troponin I 0.354 H* 0.361 H* (0.000-0.034) ng/mL 12/01/20 12/02/20 12/02/20 Range/Units 23:41 06:23 06:23 MCV 104.7 H (80.0-100.0) fL MCH 35.1 H (25.0-35.0) pg Plt Count 139 L (150-450) k/uL APTT 46.5 H 57.5 H (22.0-30.0) sec Troponin I (0.000-0.034) ng/mL Assessment and Plan Assessment: Ectopic Atrial Tachycardia NSTEMI likely secondary to Takatsubo Cardiomyopathy Acute Systolic Heart Failure, EF < 20% -monitor on telemetry, transfer to -cardiology consulted -trend troponins -ASA loaded, statin -heparin gtt -echo pending -EKG/Nitro PRN Alcohol withdrawal syndrome Alcohol abuse disorder Alcoholic Hepatitis -Admit to observation, telemetry -CIWA protocol + Ativan when necessary -Thiamine, folate, multivitamin -Alcohol cessation education -LFTs show elevated liver enzymes in cholestatic pattern with elevated bilirubin -RUQ US demonstrates increased echogenicity and size of the liver Hypokalemia Hyponatremia -Replete and monitor daily Depression -Outpatient follow-up for initiation of SSRI Patient is full code DVT prophylaxis not indicated
[2020-12-02] MEDS ORDERED: DEXTROSE 5% IN WATER 100 ML with AMIODARONE 150 MG IV ONE (14:40)
[2020-12-02] MEDS: ATORVASTATIN 40 MG TAB PO SCH (21:58)
[2020-12-02] MEDS: AMIODARONE 200 MG TAB PO SCH (21:59)
[2020-12-03] MEDS: HEPARIN SOD,PORK IN 0.45% NACL 25,000 UNIT in 0.45% NACL 1 250ML.BAG IV SCH (01:04)
[2020-12-03] MEDS: LOSARTAN 25 MG TAB PO SCH ×2 (06:28→21:03)
[2020-12-03] MEDS: THIAMINE 100 MG TAB PO SCH ×2 (06:28→18:03)
[2020-12-03] MEDS: METOPROLOL TARTRATE 50 MG TAB PO SCH ×3 (06:28→21:03)
[2020-12-03] MEDS: AMIODARONE 200 MG TAB PO SCH ×2 (06:28→21:03)
[2020-12-03] MEDS: FOLIC ACID 1 MG TAB PO SCH (06:29)
[2020-12-03 08:20] LABS: ALT 83 U/L (4-34); AST 235 U/L (14-36); African American GFR (CKD) >90 (>60 ml/min/1.73 sqM); Albumin 3.2 g/dL (3.5-5.0); Alkaline Phosphatase 189 U/L (38-126); Anion Gap 7 mmol/L; Blood Urea Nitrogen 4 mg/dL (7-17); Carbon Dioxide 26 mmol/L (22-30); Chloride 102 mmol/L (98-107); Glucose 100 mg/dL (74-99); Non-African American GFR(CKD) >90 (>60 ml/min/1.73 sqM); Potassium 3.3 mmol/L (3.5-5.1); Sodium 135 mmol/L (137-145); Total Bilirubin 2.8 mg/dL (0.2-1.3); Total Protein 6.3 g/dL (6.3-8.2)
[2020-12-03] MEDS ORDERED: ATORVASTATIN 80 MG TAB PO STA (08:29)
[2020-12-03] MEDS ORDERED: ASPIRIN 325 MG TAB PO STA (08:29)
[2020-12-03] MEDS ORDERED: ALPRAZolam 0.25 MG TAB PO PRN (08:29)
[2020-12-03] MEDS ORDERED: NITROGLYCERIN SL TABS 0.4 MG TAB SUBLINGUAL PRN (08:29)
[2020-12-03] MEDS ORDERED: ALPRAZolam 0.5 MG TAB PO PRN (08:29)
[2020-12-03] MEDS ORDERED: SODIUM CHLORIDE 0.9% 1,000 ML in EMPTY BAG 1 BAG IV SCH (08:30)
[2020-12-03] MEDS: ASPIRIN 81 MG PO SCH (08:31)
[2020-12-03] MEDS: ATORVASTATIN 40 MG TAB PO SCH (08:32)
[2020-12-03] MEDS ORDERED: POTASSIUM CHLORIDE ER 20 MEQ TAB.ER PO STA (08:32)
--- NOTE | 2020-12-03 10:14 | P.PN ---
Subjective Progress Note Date: 12/03/20 HISTORY OF PRESENT ILLNESS: This is a 35 year old female with a past medical history significant for alcohol abuse. Patient denies a previous cardiac history and does not see a cardi ologist. We have been asked to see the patient in consultation for abnormal EKG. Patient examined at the bedside. Patient is admitted to the hospital secondary to alcohol withdrawal. Patient reports she usually drinks a fifth of Vodka daily. Her last drink was last Tuesday. Patient currently denies chest pain or pressure. She denies shortness of breath. She denies palpitations. Telemetry reveals atrial tachycardia. Echocardiogram completed reveals ejection fraction less than 20%, predominantly apical hypokinesis with basal sparing which may be Takotsubo cardiomyopathy, LV wall hypokinesis, and trace to mild aortic regurgitation. Chest x-ray reveals mild subsegmental atelectasis right lung base. No obvious heart failure. Laboratory data reveals WBC 5.7. Hemoglobin 13.8. Platelet count 139. Sodium 130. Potassium 3.3. BUN 4. Creatinine 0.62. Magnesium 2.5. AST 245. ALT 74. Troponin 0.394. 0.354. 0.361. Patient does not take any cardiac medications on an outpatient basis. She denies a family history of premature coronary artery disease 12/03/2020 Patient examined this morning at the bedside. Patient denies chest pain or pressure. She denies shortness of breath. She denies palpitations. Telemetry reveals atrial tachycardia with a heart rate around 110. PHYSICAL EXAM: VITAL SIGNS: Reviewed. GENERAL: Well-developed in no acute distress. HEENT: Head is normocephalic. Pupils are equal, round. Sclerae anicteric. Mucous membranes of the mouth are moist. Neck supple. No JVD or thyromegaly LUNGS: Respirations even and unlabored. Lungs essentially clear to auscultation bilaterally. HEART: Tachycardic. Regular rate and rhythm. S1 and S2 heard. ABDOMEN: Soft. Nondistended. Nontender. EXTREMITIES: Normal range of motion. No clubbing or cyanosis. Peripheral pulses intact. No lower extremity edema NEUROLOGIC: Awake and alert. Oriented x 3. ASSESSMENT: Alcohol withdrawal disorder History of alcohol abuse Transaminitis NSTEMI, suspect Takotsubo cardiomyopathy Ectopic atrial tachycardia Hyponatremia Hypokalemia PLAN: Continue telemetry monitoring Continue current cardiac medications Repeat EKG Replace potassium Patient to undergo cardiac cath today with Dr. Loyola Repeat limited echo tomorrow to re-assess LV function. Will make a decision regarding LifeVest pending repeat echo tomorrow. Further recommendations pending patient course Nurse practitioner note has been reviewed by physician. Signing provider agrees with the documented findings, assessment, and plan of care. Objective - Vital Signs Vital signs: Vital Signs Temp 98 F 12/03/20 03:22 Pulse 122 H 12/03/20 03:22 Resp 18 12/03/20 03:22 BP 128/93 12/03/20 03:22 Pulse Ox 98 12/03/20 03:22 Intake & Output 12/02/20 12/03/20 12/03/20 18:59 06:59 18:59 Intake Total 512.155 517.845 117.286 Output Total 0 0 Balance 512.155 517.845 117.286 Weight 89.1 kg Intake: Intake, IV Titration 32.155 217.845 117.286 Amount Heparin Sod,Pork in 0.45% 32.155 217.845 117.286 NaCl 25,000 unit In 0.45 % NaCl 1 250ml.bag @ 18 UNITS/KG/HR 14.696 mls/hr IV .Q17H1M [facility] Rx#: [id number] Oral 480 300 Output: Urine 0 0 Other: Voiding Method Toilet # Voids 1 - Labs CBC & Chem 7: 12/02/20 06:23 12/03/20 07:16 Labs: Abnormal Lab Results - Last 24 Hours (Table) 12/03/20 12/03/20 Range/Units 07:16 07:16 APTT 36.7 H (22.0-30.0) sec Sodium 135 L (137-145) mmol/L Potassium 3.3 L (3.5-5.1) mmol/L BUN 4 L (7-17) mg/dL Glucose 100 H (74-99) mg/dL Total Bilirubin 2.8 H (0.2-1.3) mg/dL AST 235 H (14-36) U/L ALT 83 H (4-34) U/L Alkaline Phosphatase 189 H (38-126) U/L Albumin 3.2 L (3.5-5.0) g/dL
--- NOTE | 2020-12-03 10:26 | P.PN ---
Subjective Progress Note Date: 12/03/20 No new complaints today. Pending [facility] today. Objective - Vital Signs Vital signs: Vital Signs Temp 98 F 12/03/20 03:22 Pulse 122 H 12/03/20 03:22 Resp 18 12/03/20 03:22 BP 128/93 12/03/20 03:22 Pulse Ox 98 12/03/20 03:22 Intake & Output 12/02/20 12/03/20 12/03/20 18:59 06:59 18:59 Intake Total 512.155 517.845 117.286 Output Total 0 0 Balance 512.155 517.845 117.286 Weight 89.1 kg Intake: Intake, IV Titration 32.155 217.845 117.286 Amount Heparin Sod,Pork in 0.45% 32.155 217.845 117.286 NaCl 25,000 unit In 0.45 % NaCl 1 250ml.bag @ 18 UNITS/KG/HR 14.696 mls/hr IV .Q17H1M [facility] Rx#: [id number] Oral 480 300 Output: Urine 0 0 Other: Voiding Method Toilet # Voids 1 - Exam Gen: awake, alert HEENT: normocephalic, atraumatic, good hearing acuity, moist mucous membranes Resp: good air exchange, breathing comfortably with no accessory muscle use, clear to auscultation bilaterally without wheezes or crackles CVS: good distal perfusion x 4, regular rhythm, tachycardic, no murmurs GI: soft, NTTP, ND : no SPT, no CVAT, page catheter not present MSK: no pitting edema, no clubbing Neuro: non-focal, moving all extremities Psych: cooperative, euthymic mood - Labs CBC & Chem 7: 12/02/20 06:23 12/03/20 07:16 Labs: Abnormal Lab Results - Last 24 Hours (Table) 12/03/20 12/03/20 Range/Units 07:16 07:16 APTT 36.7 H (22.0-30.0) sec Sodium 135 L (137-145) mmol/L Potassium 3.3 L (3.5-5.1) mmol/L BUN 4 L (7-17) mg/dL Glucose 100 H (74-99) mg/dL Total Bilirubin 2.8 H (0.2-1.3) mg/dL AST 235 H (14-36) U/L ALT 83 H (4-34) U/L Alkaline Phosphatase 189 H (38-126) U/L Albumin 3.2 L (3.5-5.0) g/dL Assessment and Plan Assessment: Ectopic Atrial Tachycardia NSTEMI likely secondary to Takatsubo Cardiomyopathy Acute Systolic Heart Failure, EF < 20% -monitor on telemetry, transfer to -cardiology consulted -trend troponins -ASA loaded, statin -heparin gtt -echo with EF < 20%, mid-apical hypokinesis, basal sparing c/w takatsubo -EKG/Nitro PRN Alcohol withdrawal syndrome Alcohol abuse disorder Alcoholic Hepatitis -Admit to observation, telemetry -CIWA protocol + Ativan when necessary -Thiamine, folate, multivitamin -Alcohol cessation education -LFTs show elevated liver enzymes in cholestatic pattern with elevated bilirubin -RUQ US demonstrates increased echogenicity and size of the liver Hypokalemia Hyponatremia -Replete and monitor daily Depression -Outpatient follow-up for initiation of SSRI Patient is full code DVT prophylaxis not indicated
[2020-12-03 10:55] LABS: Glucose,Whole Blood 88 mg/dL (75-99)
[2020-12-03] MEDS ORDERED: LIDOCAINE 1% INJ 10MG/ML (20 ML MDV) ONE (11:06)
[2020-12-03] MEDS ORDERED: HEPARIN SODIUM 1,000 UN/ML (10ML VL) ONE (11:07)
[2020-12-03] MEDS ORDERED: VERAPAMIL 2.5 MG/ML 2 ML AMP ONE (11:07)
[2020-12-03] MEDS ORDERED: MIDAZOLAM 2 MG/2 ML VIAL IV ONE (11:25)
[2020-12-03] MEDS ORDERED: LIDOCAINE 1% INJ 10MG/ML (20 ML MDV) SQ ONE (11:30)
[2020-12-03] MEDS ORDERED: VERAPAMIL SYRINGE (5 MG/10 ML) INTRAARTER ONE (11:32)
[2020-12-03] MEDS ORDERED: HEPARIN SODIUM 1,000 UN/ML (10ML VL) IV ONE (11:34)
[2020-12-03] MEDS ORDERED: FUROSEMIDE 10 MG/ML 4 ML VIAL ONE (11:39)
[2020-12-03] MEDS ORDERED: FUROSEMIDE 10 MG/ML 4 ML VIAL IV ONE (11:48)
[2020-12-03] MEDS ORDERED: IOPAMIDOL-370 100ML BTL INJ ONE (11:48)
[2020-12-03] MEDS ORDERED: IV FLUID CONTINUATION 1,000 ML IV ONE (11:49)
[2020-12-03] MEDS ORDERED: SODIUM CHLORIDE 0.9% 1,000 ML IV SCH (12:30)
--- NOTE | 2020-12-03 13:26 | CC ---
CARDIAC CATHETERIZATION REPORT DATE OF SERVICE: 12/03/2020 PROCEDURE: Left heart catheterization and coronary angiography. PERFORMED BY: Dr. Neena Loyola. Moderate conscious sedation time was 13 minutes. Patient was administered Versed. Oxygen saturation, hemodynamics, and EKG were monitored closely. CLINICAL INFORMATION: Connie Lambert is a 35-year-old lady without significant past medical history, but for the last 1-1/2 years or more she has been drinking alcohol excessively, mostly vodka unlimited amount. She knew that she had a problem and she tried to withdraw herself, developed rapid heartbeat, dizziness, lightheadedness and came into the hospital, was found to be in sinus tachycardia with heart failure. She was diuresed and echocardiogram revealed ejection fraction of 20%. There was a question of mild troponin elevation and possible takotsubo type picture, but echo was more consistent with a probable cardiomyopathy of nonischemic type. After stabilizing her, she was advised cardiac cath and brought in for the procedure after due discussion regarding the rationale, risks, benefits, and options. PROCEDURE NOTE: Under local anesthesia and strict aseptic precautions, a 6-Frisian introducer was placed in the right radial artery. Using a 3.5 left and 4.0 right Jaimee catheters, I performed coronary angiography and the same right catheter was used to check LV pressures. LV gram was not performed. The sheath was taken out and TR band applied as per protocol. Saturation of the fingers of the right hand was about 94%. CARDIAC CATHETERIZATION FINDINGS: The left ventricular end-diastolic pressure was about 22-23 mmHg. No gradient across aortic valve. CORONARY ANGIOGRAPHY FINDINGS: RIGHT CORONARY ARTERY:large dominant vessel. No significant disease. Bifurcates into a large PDA and PLV. LEFT MAIN CORONARY ARTERY: This is a short patent vessel that trifurcates into LAD,circumflex and ramus intermedius. No significant disease in the left main. LEFT ANTERIOR DESCENDING CORONARY ARTERY: Good caliber vessel extends along the anterior wall, tortuous has minor irregularities no significant disease. RAMUS INTERMEDIUS:good caliber, good distribution vessel. Minor irregularities. No significant disease. LEFT POSTERIOR CIRCUMFLEX CORONARY ARTERY: Nondominant, good caliber, good distribution vessel, has minor irregularities, gives off a large left atrial circumflex branch. Left ventriculogram was not performed. FINAL IMPRESSION: This patient has elevated filling pressures. No gradient across aortic valve. She has a right dominant system. No significant obstructive CAD. She probably has a nonischemic cardiomyopathy. RECOMMENDATIONS: Findings were discussed with the patient. I am recommending that we will optimize her anti-heart failure management. She will need a Life Vest. Advised to quit alcohol and hopefully she will be discharged the next 48 hours if she remains stable. NASIR / MANINDERN: [id number] /
[2020-12-03] MEDS: FUROSEMIDE 10 MG/ML 2 ML VIAL IV SCH ×2 (16:05→23:52)
[2020-12-03] MEDS: HEPARIN SODIUM,PORCINE/PF 5,000 UNIT/0.5 ML SYRINGE SQ SCH (21:03)
[2020-12-03] MEDS: ATORVASTATIN 10 MG TAB PO SCH (21:03)
[2020-12-04] MEDS: THIAMINE 100 MG TAB PO SCH ×2 (06:01→15:26)
[2020-12-04] MEDS ORDERED: HEPARIN SODIUM,PORCINE 2,500 UNIT in SODIUM CHLORIDE 0.9% 250 ML IRRIGATION PRN (07:00)
[2020-12-04] MEDS ORDERED: HEPARIN SODIUM,PORCINE 10,000 UNIT in SODIUM CHLORIDE 0.9% 1,000 ML IRRIGATION PRN (07:00)
[2020-12-04 08:03] LABS: Basophils # (A) 0.1 k/uL (0-0.2); Basophils % (A) 1 %; Eosinophils # (A) 0.1 k/uL (0-0.7); Eosinophils % (A) 1 %; HGB 13.6 gm/dL (11.4-16.0); Lymphocytes # (A) 1.5 k/uL (1.0-4.8); Lymphocytes % (A) 21 %; MCH 34.4 pg (25.0-35.0); MCHC 32.4 g/dL (31.0-37.0); MCV 106.3 fL (80.0-100.0); Macrocytosis Moderate; Monocytes # (A) 0.7 k/uL (0-1.0); Monocytes % (A) 9 %; Neutrophils # (A) 4.8 k/uL (1.3-7.7); Neutrophils % (A) 66 %; Platelet Count 215 k/uL (150-450); RBC 3.95 m/uL (3.80-5.40); RDW 15.3 % (11.5-15.5); WBC 7.3 k/uL (3.8-10.6)
[2020-12-04 08:17] LABS: African American GFR (CKD) >90 (>60 ml/min/1.73 sqM); Anion Gap 10 mmol/L; Blood Urea Nitrogen 7 mg/dL (7-17); Calcium 9.3 mg/dL (8.4-10.2); Carbon Dioxide 26 mmol/L (22-30); Chloride 97 mmol/L (98-107); Glucose 115 mg/dL (74-99); Magnesium 1.8 mg/dL (1.6-2.3); Non-African American GFR(CKD) >90 (>60 ml/min/1.73 sqM); Potassium 3.4 mmol/L (3.5-5.1); Sodium 133 mmol/L (137-145)
[2020-12-04] MEDS: SPIRONOLACTONE 25 MG TAB PO SCH (08:31)
[2020-12-04] MEDS: ASPIRIN 81 MG PO SCH (08:32)
[2020-12-04] MEDS: METOPROLOL TARTRATE 50 MG TAB PO SCH ×3 (08:32→21:37)
[2020-12-04] MEDS: AMIODARONE 200 MG TAB PO SCH ×2 (08:32→21:37)
[2020-12-04] MEDS: FOLIC ACID 1 MG TAB PO SCH (08:32)
[2020-12-04] MEDS: HEPARIN SODIUM,PORCINE/PF 5,000 UNIT/0.5 ML SYRINGE SQ SCH ×2 (08:33→21:39)
[2020-12-04] MEDS: FUROSEMIDE 10 MG/ML 2 ML VIAL IV SCH ×3 (08:33→21:39)
[2020-12-04 10:13] VITALS: BMI 29.9
--- NOTE | 2020-12-04 10:13 | P.PN ---
Subjective Progress Note Date: 12/04/20 Pt sitting in bed, resting comfortably. No complaints at this time. Denies chest pain, dyspnea, nausea, vomiting. Objective - Vital Signs Vital signs: Vital Signs Temp 98.8 F 12/04/20 07:45 Pulse 121 H 12/04/20 07:45 Resp 16 12/04/20 07:45 BP 116/74 12/04/20 07:45 Pulse Ox 99 12/04/20 07:45 Intake & Output 12/03/20 12/04/20 12/04/20 18:59 06:59 18:59 Intake Total 557.286 300 420 Balance 557.286 300 420 Weight 86.9 kg Intake: IV 200 Intake, IV Titration 117.286 Amount Heparin Sod,Pork in 0.45% 117.286 NaCl 25,000 unit In 0.45 % NaCl 1 250ml.bag @ 18 UNITS/KG/HR 14.696 mls/hr IV .Q17H1M [facility] Rx#: [id number] Oral 240 300 420 Other: Voiding Method Toilet # Voids 2 1 - Exam Gen: awake, alert HEENT: normocephalic, atraumatic, good hearing acuity, moist mucous membranes Resp: good air exchange, breathing comfortably with no accessory muscle use, clear to auscultation bilaterally without wheezes or crackles CVS: good distal perfusion x 4, regular rhythm, tachycardic, no murmurs GI: soft, NTTP, ND : no SPT, no CVAT, page catheter not present MSK: no pitting edema, no clubbing Neuro: non-focal, moving all extremities Psych: cooperative, euthymic mood - Labs CBC & Chem 7: 12/04/20 07:39 12/04/20 07:39 Labs: Abnormal Lab Results - Last 24 Hours (Table) 12/04/20 12/04/20 Range/Units 07:39 07:39 MCV 106.3 H (80.0-100.0) fL Sodium 133 L (137-145) mmol/L Potassium 3.4 L (3.5-5.1) mmol/L Chloride 97 L (98-107) mmol/L Glucose 115 H (74-99) mg/dL Assessment and Plan Assessment: Ectopic Atrial Tachycardia NSTEMI likely secondary to Takatsubo Cardiomyopathy Acute Systolic Heart Failure, EF < 20% -monitor on telemetry, transfer to -cardiology consulted -trend troponins, downtrending -ASA loaded, statin -heparin gtt discontinued -echo with EF < 20%, mid-apical hypokinesis, basal sparing c/w takatsubo -consider repeat echo in 24-48 hours -EKG/Nitro PRN -Losartan, metoprolol, spironolactone, amiodarone -pending lifevest placement Alcohol withdrawal syndrome Alcohol abuse disorder Alcoholic Hepatitis versus Congestive Hepatopathy -Admit to observation, telemetry -CIWA protocol + Ativan when necessary -Thiamine, folate, multivitamin -Alcohol cessation education -LFTs show elevated liver enzymes in cholestatic pattern with elevated bilirubin -RUQ US demonstrates increased echogenicity and size of the liver Hypokalemia Hyponatremia -Replete and monitor daily Depression -Outpatient follow-up for initiation of SSRI Patient is full code DVT prophylaxis not indicated
--- NOTE | 2020-12-04 10:20 | ECHOF ---
Referral Reason:reassess LV function MEASUREMENTS -------- HEIGHT: 170.2 cm WEIGHT: 88.9 kg BP: RVIDd: 1.9 cm (< 3.3) IVSd: 1.5 cm (0.6 - 1.1) LVIDd: 4.7 cm (3.9 - 5.3) LVPWd: 1.3 cm (0.6 - 1.1) IVSs: 1.7 cm LVIDs: 4.2 cm LVPWs: 1.6 cm FINDINGS -------- Limited Study The left ventricular size is normal. There is mild concentric left ventricular hypertrophy. There is severe global hypokinesis of LV . Overall left ventricular systolic function is severely impair ed with, an EF between 20 - 25 %. There is no pericardial effusion. CONCLUSIONS -------- 1. The left ventricular size is normal. 2. There is mild concentric left ventricular hypertrophy. 3. There is severe global hypokinesis of LV . 4. Overall left ventricular systolic function is severely impaired with, an EF between 20 - 25 %. 5. There is no pericardial effusion. [employer] TECHNICIAN: Marissa Colindres, CS
[2020-12-04] MEDS: POTASSIUM CHLORIDE ER 20 MEQ TAB.ER PO SCH ×3 (11:20→15:26)
[2020-12-04] MEDS ORDERED: MAGNESIUM SULFATE-D5W PMX 1 GM in DEXTROSE/WATER 1 100ML.BAG IVPB ONE (11:21)
--- NOTE | 2020-12-04 11:45 | PN ---
PROGRESS NOTE This lady has nonischemic cardiomyopathy with alcoholism. Cardiac catheterization yesterday revealed no significant obstructive CAD, elevated filling pressures. I placed her on [id number] medication. She is doing better. Potassium is low at 3.3. We will supplement the potassium and also magnesium. LifeVest has been ordered. I will increase activity, switch her to oral Lasix tomorrow and plan to discharge her on LifeVest. Her right radial site is clean and dry with a good pulse. Vitals are stable. No JVD. S1-S2 heard normally. No significant murmurs. Clear lungs. Abdomen is soft. Lower extremities reveal trace edema. Central nervous system grossly within normal limits. Patient has been counseled to quit alcohol and LifeVest has been ordered. Hopefully discharge tomorrow or day after. MMODL / IJN: [id number] /
[2020-12-04] MEDS: LOSARTAN 25 MG TAB PO SCH (21:37)
[2020-12-04] MEDS: ATORVASTATIN 10 MG TAB PO SCH (21:38)
[2020-12-05] MEDS: THIAMINE 100 MG TAB PO SCH ×2 (06:31→16:33)
[2020-12-05 08:42] LABS: African American GFR (CKD) >90 (>60 ml/min/1.73 sqM); Anion Gap 8 mmol/L; Blood Urea Nitrogen 9 mg/dL (7-17); Calcium 9.7 mg/dL (8.4-10.2); Carbon Dioxide 27 mmol/L (22-30); Chloride 97 mmol/L (98-107); Glucose 145 mg/dL (74-99); Non-African American GFR(CKD) >90 (>60 ml/min/1.73 sqM); Potassium 3.5 mmol/L (3.5-5.1); Sodium 132 mmol/L (137-145)
[2020-12-05 08:45] LABS: Basophils % (A) 1 %; Eosinophils # (A) 0.1 k/uL (0-0.7); Eosinophils % (A) 1 %; HCT 39.3 % (34.0-46.0); HGB 13.2 gm/dL (11.4-16.0); Lymphocytes # (A) 1.3 k/uL (1.0-4.8); Lymphocytes % (A) 23 %; MCH 34.9 pg (25.0-35.0); MCHC 33.7 g/dL (31.0-37.0); MCV 103.7 fL (80.0-100.0); Macrocytosis Moderate; Mean Platelet Volume 9.5; Monocytes # (A) 0.6 k/uL (0-1.0); Monocytes % (A) 10 %; Neutrophils # (A) 3.8 k/uL (1.3-7.7); Neutrophils % (A) 64 %; Platelet Count 252 k/uL (150-450); RBC 3.79 m/uL (3.80-5.40); RDW 15.7 % (11.5-15.5); WBC 5.9 k/uL (3.8-10.6)
[2020-12-05] MEDS ORDERED: POTASSIUM CHLORIDE ER 20 MEQ TAB.ER PO SCH ×2 (09:00→21:00)
[2020-12-05] MEDS ORDERED: FUROSEMIDE 10 MG/ML 4 ML VIAL IV STA (09:04)
[2020-12-05] MEDS: SPIRONOLACTONE 25 MG TAB PO SCH (09:43)
[2020-12-05] MEDS: ASPIRIN 81 MG PO SCH (09:43)
[2020-12-05] MEDS: METOPROLOL TARTRATE 50 MG TAB PO SCH ×2 (09:44→21:41)
[2020-12-05] MEDS: AMIODARONE 200 MG TAB PO SCH ×2 (09:45→21:41)
[2020-12-05] MEDS: FOLIC ACID 1 MG TAB PO SCH (09:45)
[2020-12-05] MEDS: HEPARIN SODIUM,PORCINE/PF 5,000 UNIT/0.5 ML SYRINGE SQ SCH ×2 (09:45→21:41)
[2020-12-05] MEDS ORDERED: METOPROLOL TARTRATE 50 MG TAB PO STA (10:08)
[2020-12-05] MEDS: FUROSEMIDE 10 MG/ML 2 ML VIAL IV SCH (11:21)
[2020-12-05] MEDS: POTASSIUM CHLORIDE ER 20 MEQ TAB.ER PO SCH ×2 (12:40→16:33)
--- NOTE | 2020-12-05 13:32 | PN ---
PROGRESS NOTE HISTORY: This is a 35-year-old lady with alcoholism, came into the hospital with heart failure and rapid heart rate with atrial tachycardia. Cardiac cath revealed no obstructive CAD. Heart failure persists. On current medical therapy she is improving a lot. She has no chest pain or shortness of breath but she has tachycardia with mild activity. I will check a thyroid function test. Continue beta cong which I will increase the dose and also Lasix and Aldactone. Prognosis is poor. A life vest has been ordered. PHYSICAL EXAM: Vital signs stable. Heart rate is about 110 but regular and sinus. Blood pressure is 118/70. JVD of 1 cm. No carotid bruit. S1-S2 heard normally. Tachycardia. No significant murmurs. Clear lungs. Abdomen is soft, nontender. Lower extremities reveal normal pulses. Central nervous system normal. Right radial site is clean and dry with a good pulse. PLAN: Continue current medications, increase beta cong, check thyroid function. Possible discharge tomorrow. MMODL / IJN: [id number] /
--- NOTE | 2020-12-05 15:27 | P.PN ---
Subjective patient was found to be tachycardic this am at rest with RH in the 110-120's. She has been asymptomtic however, no chest pain, no dyspne, no palpitations, no presyncope. Lopressor has increased today per cardiology, awaiting arrival of life vest. possible DC home tomorrow Objective - Vital Signs Vital signs: Vital Signs Temp 98 F 12/05/20 12:00 Pulse 85 12/05/20 12:00 Resp 18 12/05/20 12:00 BP 92/64 12/05/20 12:00 Pulse Ox 97 12/05/20 12:00 Intake & Output 12/04/20 12/05/20 12/05/20 18:59 06:59 18:59 Intake Total 780 180 Output Total 1400 850 Balance 780 -1400 -670 Weight 86.9 kg 86.3 kg Intake: Oral 780 180 Output: Urine 1400 850 Other: Voiding Method Toilet Toilet Toilet # Voids 1 1 # Bowel Movements 1 - Exam Gen: awake, alert, oriented, in NAD HEENT: normocephalic, atraumatic, moist mucous membranes Resp: good air exchange, breathing comfortably with no accessory muscle use, clear to auscultation bilaterally without wheezes or crackles CVS: good distal perfusion x 4, regular rhythm, tachycardic, no murmurs GI: soft, non tender, non distended, normal bowel sounds MSK: no pitting edema, no clubbing Neuro: non-focal, moving all extremities - Labs CBC & Chem 7: 12/05/20 08:17 12/05/20 08:17 Labs: Abnormal Lab Results - Last 24 Hours (Table) 12/05/20 12/05/20 Range/Units 08:17 08:17 RBC 3.79 L (3.80-5.40) m/uL MCV 103.7 H (80.0-100.0) fL RDW 15.7 H (11.5-15.5) % Sodium 132 L (137-145) mmol/L Chloride 97 L (98-107) mmol/L Glucose 145 H (74-99) mg/dL Assessment and Plan Plan: # NSTEMI secondary to nonischemic cardiopathy -Cardiac catheterization revealed no coronary stenosis -Troponin has been trending down, heparin drip has been discontinued -Ejection fraction 2024% with mid apical hypokinesis -Patient will need a LifeVest which will be delivered today -Continue losartan, metoprolol, spironolactone, amiodarone # Atrial tachycardia -Most likely exacerbated by alcohol withdrawal symptoms, with underlying severe cardiomyopathy -Patient was started on metoprolol as admission, heart rate was found to be elevated this morning at rest. Metoprolol dose has been increased per cardiology -Continue amiodarone, check thyroid function test # Alcohol withdrawal syndrome -Improving, no significant signs of withdrawal of the last 24-48 hours -Last drink was 6 days ago -Counseled on importance of cessation especially in the setting of severe cardiomyopathy which was most likely caused by alcoholism -Continue thiamine, folate, multivitamin # Elevated liver enzymes -Most likely secondary to chronic alcoholism, possible component of congestive hepatopathy Anticipated discharge home tomorrow Time with Patient: Less than 30
[2020-12-05] MEDS ORDERED: FUROSEMIDE 40 MG TAB PO SCH (16:00)
[2020-12-05] MEDS ORDERED: METOPROLOL TARTRATE 25 MG TAB PO SCH (16:00)
[2020-12-05 16:41] VITALS: RESP 16
[2020-12-05] MEDS: ATORVASTATIN 10 MG TAB PO SCH (21:41)
[2020-12-05] MEDS: LOSARTAN 25 MG TAB PO SCH (23:46)
[2020-12-06] MEDS: THIAMINE 100 MG TAB PO SCH (06:44)
[2020-12-06] MEDS ORDERED: POTASSIUM CHLORIDE ER 20 MEQ TAB.ER PO SCH (09:00)
[2020-12-06] MEDS ORDERED: FUROSEMIDE 20 MG TAB PO SCH (09:00)
[2020-12-06 09:05] LABS: Basophils % (A) 1 %; Eosinophils # (A) 0.1 k/uL (0-0.7); Eosinophils % (A) 1 %; HCT 38.9 % (34.0-46.0); HGB 12.6 gm/dL (11.4-16.0); Lymphocytes # (A) 1.1 k/uL (1.0-4.8); Lymphocytes % (A) 18 %; MCH 34.6 pg (25.0-35.0); MCHC 32.5 g/dL (31.0-37.0); MCV 106.8 fL (80.0-100.0); Macrocytosis Moderate; Mean Platelet Volume 10.8; Monocytes # (A) 0.7 k/uL (0-1.0); Monocytes % (A) 11 %; Neutrophils # (A) 4.1 k/uL (1.3-7.7); Neutrophils % (A) 67 %; Platelet Count 280 k/uL (150-450); RBC 3.64 m/uL (3.80-5.40); RDW 14.8 % (11.5-15.5); WBC 6.1 k/uL (3.8-10.6)
[2020-12-06 09:23] LABS: ALT 89 U/L (4-34); AST 191 U/L (14-36); African American GFR (CKD) >90 (>60 ml/min/1.73 sqM); Albumin 3.3 g/dL (3.5-5.0); Alkaline Phosphatase 156 U/L (38-126); Anion Gap 8 mmol/L; Blood Urea Nitrogen 11 mg/dL (7-17); Calcium 10.2 mg/dL (8.4-10.2); Carbon Dioxide 30 mmol/L (22-30); Chloride 96 mmol/L (98-107); Glucose 131 mg/dL (74-99); Magnesium 1.8 mg/dL (1.6-2.3); Non-African American GFR(CKD) >90 (>60 ml/min/1.73 sqM); Potassium 4.1 mmol/L (3.5-5.1); Sodium 134 mmol/L (137-145); Total Bilirubin 1.5 mg/dL (0.2-1.3); Total Protein 6.4 g/dL (6.3-8.2)
[2020-12-06 09:53] VITALS: TEMP 98.4
[2020-12-06] MEDS: HEPARIN SODIUM,PORCINE/PF 5,000 UNIT/0.5 ML SYRINGE SQ SCH (09:53)
[2020-12-06] MEDS: AMIODARONE 200 MG TAB PO SCH (09:54)
[2020-12-06] MEDS: SPIRONOLACTONE 25 MG TAB PO SCH (09:54)
[2020-12-06] MEDS: METOPROLOL TARTRATE 50 MG TAB PO SCH (09:54)
[2020-12-06] MEDS: ASPIRIN 81 MG PO SCH (09:54)
[2020-12-06] MEDS: FOLIC ACID 1 MG TAB PO SCH (09:54)
--- NOTE | 2020-12-06 10:40 | PN ---
PROGRESS NOTE This lady has nonischemic cardiomyopathy, ejection fraction of less than 20%. Yesterday I diuresed her aggressively. She dropped her blood pressure, but this morning pressure is 118/70, pulse rate is about 92. She has tachycardia with mild activity. Will continue beta blockers, reduced oral dose of Lasix and reduced potassium. Continue losartan at bedtime and beta blockers. Vitals are stable. No JVD. S1, S2 heard normally. Lungs are clear. Abdomen is soft, nontender. Right radial site is clean and dry with a good pulse. Abdomen is soft. Lower extremities reveal palpable pulses. No edema. Central nervous system is normal. Patient can be discharged on LifeVest, and I will see her in 2 weeks. Discharge instructions given. MMODL / IJN: [id number] /
[2020-12-06 15:08] VITALS: BP 108/76; PULSE 90
--- NOTE | 2020-12-07 15:08 | P.DS ---
Providers Date of admission: 11/29/20 13:14 Expected date of discharge: 12/06/20 Attending physician: Sadaf Vo Consults: 12/01/20 09:57 Consult Physician Stat Consulting Provider: Esa Ragland Consult Reason/Comments: Abnormal EKG Do you want consulting provider notified?: Yes Primary care physician: Stated None - Discharge Diagnosis(es) (1) Cardiomyopathy Status: Acute Priority: High Hospital Course: HPI from admission on 11/29: 35 year old woman with history of ETOH abuse presented with nausea, vomiting. Patient says that she has been drinking excessively this year, about 1 pint of hard liquor daily. She has been quite depressed which is driving her alcohol abuse. Two days ago she stopped drinking cold turkey in an attempt to quit drinking, and then started to develop nausea, vomiting symptoms. She has not been able to keep any food down because of this. She has also felt anxious and jittery. She reports burning chest pain, but denies fevers, chills, palps, syncope, presyncope, abd pain, diarrhea, constipation, dysuria, dyschezia, numbness/weakness In the ER, she is afebrile, tachycardic to 140s with EKG in sinus rhythm. Labs remarkable for hypokalemia to 2.5, hyponatremia. No LFTs were drawn. Hospital Course: patient was treated with IV Ativan for alcohol withdrawal syndrome, although her symptoms are relatively mild and likely resolved a few days prior to discharge. She was counseled extensively on the importance of alcohol cessation especially in the setting of her severe cardiomyopathy. Troponins were elevated on admission but trended down, she was started on heparin drip until she underwent cardiac catheterization by cardiology which revealed no artery stenosis, but she does have an ejection fraction of 20-25% with mild apical hypokinesis. She was started on losartan, metoprolol, spironolactone, and amiodarone as she had developed persistent atrial tachycardia which required escalating doses of beta blockers. given her low ejection fraction, patient was discharged home with a LifeVest. Recommend close follow-up with cardiology over the following few weeks Assessment: Gen: awake, alert, oriented, in NAD HEENT: normocephalic, atraumatic, moist mucous membranes Resp: good air exchange, breathing comfortably with no accessory muscle use, clear to auscultation bilaterally without wheezes or crackles CVS: good distal perfusion x 4, regular rhythm, tachycardic, no murmurs GI: soft, non tender, non distended, normal bowel sounds MSK: no pitting edema, no clubbing Neuro: non-focal, moving all extremities Procedures: cardiac catheterization Patient Condition at Discharge: Good Plan - Discharge Summary Discharge Rx Participant: Yes New Discharge Prescriptions: New Spironolactone [Aldactone] 12.5 mg PO DAILY 30 Days #15 tab Amiodarone [Cordarone] 200 mg PO BID 30 Days #60 tab Furosemide [Lasix] 20 mg PO DAILY 30 Days #30 tab Aspirin 81 mg PO DAILY 30 Days #30 tab Losartan [Cozaar] 25 mg PO HS 30 Days #30 tab Atorvastatin [Lipitor] 10 mg PO HS 30 Days #30 tab Metoprolol Tartrate [Lopressor] 50 mg PO TID 30 Days #90 tab No Action No Known Home Medications Discharge Medication List No Known Home Medications 11/29/20 [History] Amiodarone [Cordarone] 200 mg PO BID 30 Days #60 tab 12/06/20 [Rx] Aspirin 81 mg PO DAILY 30 Days #30 tab 12/06/20 [Rx] Atorvastatin [Lipitor] 10 mg PO HS 30 Days #30 tab 12/06/20 [Rx] Furosemide [Lasix] 20 mg PO DAILY 30 Days #30 tab 12/06/20 [Rx] Losartan [Cozaar] 25 mg PO HS 30 Days #30 tab 12/06/20 [Rx] Metoprolol Tartrate [Lopressor] 50 mg PO TID 30 Days #90 tab 12/06/20 [Rx] Spironolactone [Aldactone] 12.5 mg PO DAILY 30 Days #15 tab 12/06/20 [Rx] Follow up Appointment(s)/Referral(s): Roman Ambrocio MD [STAFF PHYSICIAN] - 1 Week (Option for primary physician, please call to schedule follow up and establish as primary. ) Rupert Loyola MD [STAFF PHYSICIAN] - 1 Week (Call office during business hours to schedule follow up appointments. ) Cat Velasco MD [STAFF PHYSICIAN] - 1 Week (Option for primary physician, please call to schedule follow up and establish as primary. ) None,Stated [Primary Care Provider] - 1-2 days [facility] Davide gonzalez [NON-STAFF] - 1 Week (Option for primary physician, please call to schedule follow up and establish as primary. ) Patient Instructions/Handouts: Dilated Cardiomyopathy (GEN), Abuse of Alcohol (DC), After Radial Heart Catheterization (GEN) Discharge Disposition: HOME SELF-CARE
== END 2020-12-06 16:28 | disposition home or self-care (01) | DRG 896 ==
LOC: EC 10:25 → 4SSUR 13:14 → 3SCARD 12-01 12:52
PROVIDERS: ADMIT Internal Medicine; ATTEND Internal Medicine
PROC: B2111ZZ Fluoroscopy of Multiple Coronary Arteries using Low Osmolar Contrast (ICD-10-PCS; 2020-12-03)
PROC: 4A023N7 Measurement of Cardiac Sampling and Pressure, Left Heart, Percutaneous Approach (ICD-10-PCS; principal; 2020-12-03 11:30)
DX: F10.239 Alcohol dependence with withdrawal, unspecified (principal); I50.21 Acute systolic (congestive) heart failure; I21.4 Non-ST elevation (NSTEMI) myocardial infarction; E87.1 Hypo-osmolality and hyponatremia; I51.81 Takotsubo syndrome; I47.1 Supraventricular tachycardia; I42.8 Other cardiomyopathies; J98.11 Atelectasis; Z20.822 Contact with and (suspected) exposure to COVID-19; E87.6 Hypokalemia; F32.9 Major depressive disorder, single episode, unspecified; K70.10 Alcoholic hepatitis without ascites; Z71.41 Alcohol abuse counseling and surveillance of alcoholic
CPT/HCPCS: 36415; 71045; 76700; 80048; 80053; 80076; 80320; 83735; 84132; 84484; 84702; 85025; 85610; 85730; 87635; 93005; 93306; 93308; 93458; 96361; 96372; 96374; 99285

== ENCOUNTER 2021-01-24 10:27 | Inpatient (IN) | payer MEDICAID, OTHER ==
[2021-01-24] MEDS ORDERED: SODIUM CHLORIDE 0.9% 500 ML 500 ML IV STA (12:20)
[2021-01-24] MEDS ORDERED: ASPIRIN 81 MG PO STA (12:20)
[2021-01-24] MEDS ORDERED: LORazepam 2 MG/ML INJ IV STA (12:20)
[2021-01-24 13:04] LABS: INR 1.1 (<1.2); Prothrombin Time 11.6 sec (9.0-12.0)
--- NOTE | 2021-01-24 13:05 | ED ---
General Adult HPI - General Source: patient, family, RN notes reviewed, old records reviewed Mode of arrival: ambulatory Limitations: no limitations <Niko Smith - Last Filed: 01/24/21 14:42> <Milton Fiore - Last Filed: 01/24/21 16:26> - General Chief complaint: Psychiatric Symptoms Stated complaint: med reaction, Hallucinations Time Seen by Provider: 01/24/21 11:56 - History of Present Illness Initial comments: Patient is a 35-year-old female with past medical history remarkable for alcohol abuse, prior alcohol withdrawals, anxiety and depression, cardiomyopathy who presents to the emergency department over concern for a medication side effect. Patient was started on fluvoxamine on the prior hospital admission when she was diagnosed cardiomyopathy. She states that she began taking it last week and for the last 4 days or so, she has been having vivid dreams at night. They disturb her. She attributes it to the medication and is seeking a new medication. She does endorse continued depression and anxiety. She denies any visual hallucinations. She states she may be having auditory hallucinations but is uncertain, she hears murmuring. She denies any suicidal or homicidal ideations, attempts, plans. She does endorse chest pain, however states it feels like her anxiety induced chest pain which she has frequently. She denies shortness of breath. Denies any fevers, chills, cough. Denies any nausea, vomiting, abdominal pain. She is compliant with her cardiac medications per patient. She states she still drinks alcohol but not as much history previously did. Over the last few days she did drink half a pint of liquor per day. She also smokes marijuana. She denies any withdrawal symptoms. She is no acute complaints at this time. She would like to speak with psychiatry. Patient describes her chest pain as a pressure sensation which is chronic for her and comes and goes with anxiety. No known known palliative factors. Patient has not drank since yesterday. (Niko Smith) - Related Data Home Medications Medication Instructions Recorded Confirmed Losartan Potassium 50 mg PO DAILY 01/24/21 01/24/21 Previous Rx's Medication Instructions Recorded Aspirin 81 mg PO DAILY 30 Days #30 tab 12/06/20 Atorvastatin [Lipitor] 10 mg PO HS 30 Days #30 tab 12/06/20 Furosemide [Lasix] 20 mg PO DAILY 30 Days #30 tab 12/06/20 Metoprolol Tartrate [Lopressor] 50 mg PO TID 30 Days #90 tab 12/06/20 Allergies Allergy/AdvReac Type Severity Reaction Status Date / Time No Known Allergies Allergy Verified 01/24/21 12:49 Review of Systems ROS Other: All systems not noted in ROS Statement are negative. <Niko Smith - Last Filed: 01/24/21 14:42> ROS Other: All systems not noted in ROS Statement are negative. <Milton Fiore - Last Filed: 01/24/21 16:26> ROS Statement: Those systems with pertinent positive or pertinent negative responses have been documented in the HPI. Review of Systems: CONST: Denies fever EYES: Denies blurry vision ENT: Denies nasal congestion C/V: Endorses chest pain RESP: Denies shortness of breath GI: Denies abdominal pain : Denies dysuria SKIN: Denies rash. MSK: Denies joint pain. NEURO: Denies headache PSYCH: Denies suicidal and homicidal ideations/plans/attempts. Denies visual hallucinations. Believe she may be having auditory hallucinations. She states she hears "murmurs." (Niko Smith) Past Medical History Past Medical History: No Reported History History of Any Multi-Drug Resistant Organisms: None Reported Past Surgical History: No Surgical Hx Reported Past Anesthesia/Blood Transfusion Reactions: No Reported Reaction Past Psychological History: Depression Smoking Status: Never smoker Past Alcohol Use History: Abuse, Daily Past Drug Use History: Marijuana - Past Family History Father Family Medical History: Hyperlipidemia <LuisNiko - Last Filed: 01/24/21 14:42> General Exam Limitations: no limitations <LuisNiko - Last Filed: 01/24/21 14:42> - General Exam Comments Initial Comments: General: Appears in no acute distress. HEAD: Normal with no signs of head trauma. EYES: PERRLA, EOMI, conjunctiva normal, no discharge. ENT: Hearing grossly intact, normal oropharynx. RESPIRATORY: Clear breath sounds bilaterally. No wheezes, rales, or rhonchi. C/V: Regular rate and rhythm. S1 and S2 auscultated, no edema, peripheral pulses 2+ and intact throughout ABD: Abd is soft, nontender, nondistended EXT: Normal range of motion, no obvious deformity SKIN: No rashes or lesions observed on exposed skin. NEURO: Alert and oriented 4. No focal sensory strength deficits. No appreciated tremor. (Niko Smith) Course Vital Signs 01/24/21 10:56 Temperature 98.6 F Pulse Rate 84 Respiratory 18 Rate Blood Pressure 117/89 O2 Sat by Pulse 99 Oximetry Medical Decision Making - Lab Data Result diagrams: 01/24/21 12:37 01/24/21 12:37 - EKG Data -: EKG Interpreted by Me <Niko Smith - Last Filed: 01/24/21 14:42> - Lab Data Result diagrams: 01/24/21 12:37 01/24/21 12:37 <Milton Fiore - Last Filed: 01/24/21 16:26> - Medical Decision Making Based on the patient's presentation and physical exam, I do believe her chest discomfort is likely secondary to anxiety but I would like to rule out the possibility of cardiac etiology with her history of cardiomyopathy. Therefore we will obtain a cardiac workup including EKG, chest x-ray and labs. Patient be given Ativan for anxiety. She also be given an aspirin and small 500 mL fluid bolus. Patient was in agreement this plan. She'll be evaluated by psychiatry following medical clearance. Breathalyzer level was 0. UDS was ordered. Patient's EKG shows no acute signs of ischemia, does reveal chronic T wave inversions in the lateral precordial leads. Chest x-ray revealed no acute cardio pulmonary process. Laboratory studies are remarkable for a mild leukocytosis of 12.3 which could be reactive. Patient is hypokalemic at 3.1 which was replenished, she is mildly elevated AST and ALT which is improved from her prior visit. Troponin is negative. Alcohol level is negative. UDS is still pending at this time. On reevaluation, patient is feeling improved. Vital signs have remained stable and within normal limits. I do believe it is safe for the patient reevaluated by EPS at this time. Patient is medically cleared. Disposition is pending EPS evaluation. Patient was signed out to the [facility] emergency department physician Dr. Fiore pending psychiatric evaluation. (Niko Smith) Patient seen by mental health services with plans for admission. (Milton Fiore) - Lab Data Lab Results 01/24/21 01/24/21 01/24/21 Range/Units 12:37 12:37 12:37 WBC 12.3 H (3.8-10.6) k/uL RBC 4.16 (3.80-5.40) m/uL Hgb 13.0 (11.4-16.0) gm/dL Hct 38.0 (34.0-46.0) % MCV 91.3 D (80.0-100.0) fL MCH 31.3 (25.0-35.0) pg MCHC 34.3 (31.0-37.0) g/dL RDW 15.1 (11.5-15.5) % Plt Count 255 (150-450) k/uL MPV 8.7 Neutrophils % 77 % Lymphocytes % 17 % Monocytes % 4 % Eosinophils % 0 % Basophils % 0 % Neutrophils # 9.5 H (1.3-7.7) k/uL Lymphocytes # 2.1 (1.0-4.8) k/uL Monocytes # 0.5 (0-1.0) k/uL Eosinophils # 0.0 (0-0.7) k/uL Basophils # 0.0 (0-0.2) k/uL PT 11.6 (9.0-12.0) sec INR 1.1 (<1.2) APTT 23.0 (22.0-30.0) sec Sodium (137-145) mmol/L Potassium (3.5-5.1) mmol/L Chloride (98-107) mmol/L Carbon Dioxide (22-30) mmol/L Anion Gap mmol/L BUN (7-17) mg/dL Creatinine (0.52-1.04) mg/dL Est GFR (CKD-EPI)AfAm (>60 ml/min/1.73 sqM) Est GFR (CKD-EPI)NonAf (>60 ml/min/1.73 sqM) Glucose (74-99) mg/dL Calcium (8.4-10.2) mg/dL Magnesium (1.6-2.3) mg/dL Total Bilirubin (0.2-1.3) mg/dL AST (14-36) U/L ALT (4-34) U/L Alkaline Phosphatase (38-126) U/L Troponin I (0.000-0.034) ng/mL Total Protein (6.3-8.2) g/dL Albumin (3.5-5.0) g/dL Urine Opiates Screen Not Detected (NotDetected) Ur Oxycodone Screen Not Detected (NotDetected) Urine Methadone Screen Not Detected (NotDetected) Ur Propoxyphene Screen Not Detected (NotDetected) Ur Barbiturates Screen Not Detected (NotDetected) U Tricyclic Antidepress Not Detected (NotDetected) Ur Phencyclidine Scrn Not Detected (NotDetected) Ur Amphetamines Screen Not Detected (NotDetected) U Methamphetamines Scrn Not Detected (NotDetected) U Benzodiazepines Scrn Not Detected (NotDetected) Urine Cocaine Screen Not Detected (NotDetected) U Marijuana (THC) Screen Not Detected (NotDetected) Serum Alcohol mg/dL 01/24/21 01/24/21 Range/Units 12:37 12:37 WBC (3.8-10.6) k/uL RBC (3.80-5.40) m/uL Hgb (11.4-16.0) gm/dL Hct (34.0-46.0) % MCV (80.0-100.0) fL MCH (25.0-35.0) pg MCHC (31.0-37.0) g/dL RDW (11.5-15.5) % Plt Count (150-450) k/uL MPV Neutrophils % % Lymphocytes % % Monocytes % % Eosinophils % % Basophils % % Neutrophils # (1.3-7.7) k/uL Lymphocytes # (1.0-4.8) k/uL Monocytes # (0-1.0) k/uL Eosinophils # (0-0.7) k/uL Basophils # (0-0.2) k/uL PT (9.0-12.0) sec INR (<1.2) APTT (22.0-30.0) sec Sodium 139 (137-145) mmol/L Potassium 3.1 L (3.5-5.1) mmol/L Chloride 93 L (98-107) mmol/L Carbon Dioxide 30 (22-30) mmol/L Anion Gap 16 mmol/L BUN 15 (7-17) mg/dL Creatinine 1.05 H (0.52-1.04) mg/dL Est GFR (CKD-EPI)AfAm 81 (>60 ml/min/1.73 sqM) Est GFR (CKD-EPI)NonAf 70 (>60 ml/min/1.73 sqM) Glucose 101 H (74-99) mg/dL Calcium 9.2 (8.4-10.2) mg/dL Magnesium 1.0 L (1.6-2.3) mg/dL Total Bilirubin 1.7 H (0.2-1.3) mg/dL AST 68 H (14-36) U/L ALT 58 H (4-34) U/L Alkaline Phosphatase 83 (38-126) U/L Troponin I <0.012 (0.000-0.034) ng/mL Total Protein 8.4 H (6.3-8.2) g/dL Albumin 4.7 (3.5-5.0) g/dL Urine Opiates Screen (NotDetected) Ur Oxycodone Screen (NotDetected) Urine Methadone Screen (NotDetected) Ur Propoxyphene Screen (NotDetected) Ur Barbiturates Screen (NotDetected) U Tricyclic Antidepress (NotDetected) Ur Phencyclidine Scrn (NotDetected) Ur Amphetamines Screen (NotDetected) U Methamphetamines Scrn (NotDetected) U Benzodiazepines Scrn (NotDetected) Urine Cocaine Screen (NotDetected) U Marijuana (THC) Screen (NotDetected) Serum Alcohol <10 mg/dL - EKG Data EKG Comments: 12-lead Electrocardiogram Interpretation Note EKG was reviewed and interpreted by myself. 12-lead ECG performed at 1229 is interpreted by me as revealing normal sinus rhythm with a PVC. At a rate of 83 beats per minute. [place] is normal. [place] interval is 130 ms, QRS duration is 92 ms, QTc is incorrect on machine,, as the QT interval appears to be 400 ms.. There are chronic T wave inversions in lateral precordial leads that are seen on prior EKGs. No ST segment elevations or depressions.. R wave progression across the precordium was satisfactory. By my interpretation this EKG is non- diagnostic for acute ischemia. There are chronic T wave inversions. (Niko Smith) Disposition <Niko Smith - Last Filed: 01/24/21 14:42> Is patient prescribed a controlled substance at d/c from ED?: No Decision Time: 16:26 <Milton Fiore - Last Filed: 01/24/21 16:26> Clinical Impression: Acute anxiety, Alcohol abuse, History of cardiomyopathy, Encounter for psychiatric assessment Disposition: TRANSFER TO PSYCH HOSP/UNIT Referrals: Tiffanie Ramires DO [Primary Care Provider] - 1-2 days
[2021-01-24 13:06] LABS: ALT 58 U/L (4-34); AST 68 U/L (14-36); African American GFR (CKD) 81 (>60 ml/min/1.73 sqM); Albumin 4.7 g/dL (3.5-5.0); Alcohol <10 mg/dL; Alkaline Phosphatase 83 U/L (38-126); Anion Gap 16 mmol/L; Blood Urea Nitrogen 15 mg/dL (7-17); Calcium 9.2 mg/dL (8.4-10.2); Carbon Dioxide 30 mmol/L (22-30); Chloride 93 mmol/L (98-107); Glucose 101 mg/dL (74-99); Non-African American GFR(CKD) 70 (>60 ml/min/1.73 sqM); Potassium 3.1 mmol/L (3.5-5.1); Sodium 139 mmol/L (137-145); Total Bilirubin 1.7 mg/dL (0.2-1.3); Total Protein 8.4 g/dL (6.3-8.2)
[2021-01-24] MEDS ORDERED: POTASSIUM CHLORIDE ER 20 MEQ TAB.ER PO STA (13:08)
--- NOTE | 2021-01-24 13:10 | XR ---
EXAMINATION TYPE: XR chest 2V DATE OF EXAM: 01/24/2021 COMPARISON: 12/01/2020 HISTORY: 35-year-old female with chest pain TECHNIQUE: PA and lateral views FINDINGS: The cardiomediastinal silhouette, aorta, and pulmonary vasculature are within normal limits. Some str anu atelectasis in the lower lungs. No consolidation or pleural effusion. IMPRESSION: Some strandy atelectasis. Otherwise, no acute cardiopulmonary process.
[2021-01-24 13:15] LABS: Basophils % (A) 0 %; Eosinophils % (A) 0 %; Lymphocytes # (A) 2.1 k/uL (1.0-4.8); Lymphocytes % (A) 17 %; MCH 31.3 pg (25.0-35.0); MCHC 34.3 g/dL (31.0-37.0); Mean Platelet Volume 8.7; Monocytes # (A) 0.5 k/uL (0-1.0); Monocytes % (A) 4 %; Neutrophils # (A) 9.5 k/uL (1.3-7.7); Neutrophils % (A) 77 %; Platelet Count 255 k/uL (150-450); RBC 4.16 m/uL (3.80-5.40); RDW 15.1 % (11.5-15.5); WBC 12.3 k/uL (3.8-10.6)
[2021-01-24 13:18] LABS: MCV 91.3 fL (80.0-100.0)
[2021-01-24] MEDS: MAGNESIUM SULFATE-D5W PMX 1 GM in DEXTROSE/WATER 1 100ML.BAG IVPB SCH ×2 (13:45→18:40)
[2021-01-24 15:08] LABS: Amphetamine Screen,Urine Not Detected (NotDetected); Barbiturate Screen,Urine Not Detected (NotDetected); Benzodiazepines Screen,Urine Not Detected (NotDetected); Cocaine Screen,Urine Not Detected (NotDetected); Methadone Screen, Urine Not Detected (NotDetected); Opiate Screen,Urine Not Detected (NotDetected); Oxycodone Screen, Urine Not Detected (NotDetected); Phencyclidine Screen,Urine Not Detected (NotDetected); Tricyclic Antidepressant,Urine Not Detected (NotDetected); Urn Cannabinoid Scrn Not Detected (NotDetected)
[2021-01-24] MEDS ORDERED: LORazepam 1 MG TAB PO PRN (18:09)
[2021-01-24] MEDS ORDERED: MAGNESIUM HYDROXIDE 2,400 MG/10 ML CUP PO PRN (18:09)
[2021-01-24] MEDS ORDERED: MAG HYDROX/AL HYDROX/SIMETH 30 ML CUP PO PRN (18:09)
[2021-01-24] MEDS ORDERED: ACETAMINOPHEN TAB 325 MG TAB PO PRN (18:09)
[2021-01-24] MEDS ORDERED: LORazepam 2 MG/ML INJ IM PRN (18:14)
[2021-01-24] MEDS ORDERED: HALOPERIDOL LACTATE 5 MG/ML 1 ML VIAL IM PRN (18:15)
[2021-01-24] MEDS ORDERED: MAGNESIUM OXIDE 400 MG TAB PO STA (18:39)
[2021-01-24] MEDS: METOPROLOL TARTRATE 50 MG TAB PO SCH (21:06)
[2021-01-24] MEDS: ATORVASTATIN 10 MG TAB PO SCH (21:06)
[2021-01-25 04:14] LABS: Appearance,Urine Clear (Clear); Bilirubin,Urine Negative (Negative); Blood,Urine Negative (Negative); Color,Urine Light Yellow; Glucose,Urine (UA) Negative (Negative); Ketones,Urine Negative (Negative); Leukocyte Esterase,Urine Negative (Negative); Nitrite,Urine Negative (Negative); PH, Urine 6.5 (5.0-8.0); Protein,Urine Negative (Negative); Specific Gravity,Urine 1.011 (1.001-1.035); Urobilinogen,Urine <2.0 mg/dL (<2.0)
[2021-01-25] MEDS: NICOTINE 14MG/24HR PATCH TRANSDERM SCH (08:20)
[2021-01-25] MEDS: FUROSEMIDE 20 MG TAB PO SCH (08:21)
[2021-01-25] MEDS: ASPIRIN 81 MG PO SCH (08:21)
[2021-01-25] MEDS: METOPROLOL TARTRATE 50 MG TAB PO SCH ×3 (08:21→20:32)
[2021-01-25] MEDS: LOSARTAN 50 MG TAB PO SCH (08:21)
[2021-01-25 09:11] LABS: Basophils % (A) 0 %; Eosinophils % (A) 0 %; HCT 36.1 % (34.0-46.0); HGB 12.1 gm/dL (11.4-16.0); Lymphocytes # (A) 2.5 k/uL (1.0-4.8); Lymphocytes % (A) 24 %; MCH 31.4 pg (25.0-35.0); MCHC 33.6 g/dL (31.0-37.0); MCV 93.4 fL (80.0-100.0); Mean Platelet Volume 8.4; Monocytes # (A) 0.5 k/uL (0-1.0); Monocytes % (A) 5 %; Neutrophils # (A) 7.3 k/uL (1.3-7.7); Neutrophils % (A) 69 %; Platelet Count 257 k/uL (150-450); RBC 3.87 m/uL (3.80-5.40); RDW 15.4 % (11.5-15.5); WBC 10.6 k/uL (3.8-10.6)
[2021-01-25 09:30] LABS: ALT 48 U/L (4-34); AST 58 U/L (14-36); African American GFR (CKD) >90 (>60 ml/min/1.73 sqM); Albumin 4.3 g/dL (3.5-5.0); Alkaline Phosphatase 81 U/L (38-126); Anion Gap 11 mmol/L; Blood Urea Nitrogen 12 mg/dL (7-17); Carbon Dioxide 29 mmol/L (22-30); Chloride 96 mmol/L (98-107); Glucose 126 mg/dL (74-99); Magnesium 1.6 mg/dL (1.6-2.3); Non-African American GFR(CKD) 87 (>60 ml/min/1.73 sqM); Potassium 3.1 mmol/L (3.5-5.1); Sodium 136 mmol/L (137-145); Total Bilirubin 1.4 mg/dL (0.2-1.3); Total Protein 7.6 g/dL (6.3-8.2)
[2021-01-25] MEDS: OLANZapine 5 MG TAB PO SCH ×2 (10:07→20:32)
[2021-01-25] MEDS ORDERED: INFLUENZA VACC (6 MOS-64 YRS) 60 MCG/0.5 ML SYRINGE IM ONE (10:30)
[2021-01-25] MEDS ORDERED: PNEUMOCOCCAL VACC-PNEUMOVAX 23 25 MCG/0.5 ML VIAL IM ONE (10:31)
--- NOTE | 2021-01-25 10:57 | HP ---
HISTORY AND PHYSICAL DATE OF SERVICE: 01/25/2021 IDENTIFYING DATA: The patient is a 35-year-old female. She had been living independently, though more recently has resided with her parents. She presented to the ED for evaluation. CHIEF COMPLAINT: The patient was having what she called hallucinations which occurred when she woke up from dreaming. She has high anxiety and long-term problems with depression. HISTORY OF PRESENTING ILLNESS: The patient has not had a prior psychiatric hospitalization. She had recent hospitalization for cardiac issues. She stated that she has had long-term problems with anxiety and depression "most all of my life." She saw a psychiatrist at [facility] in [place] and was started on 01/18 on Luvox; she was uncertain of the dose. She said she stopped Luvox on 01/22, as she was having problems, especially at nighttime, where she would wake up and feel that she was hallucinating. She was able to be aware that she had woken up in a dream state and seemed to be continuing in that state while she was awake. She also has noted in the last couple days that in the daytime she could be watching television and then begin hearing some murmuring that sounded like her parents' voices. This would last for less than a few minutes. She said that that might have occurred when she may have been drifting off to sleep, though she was not sure about that. A confounding factor is that she has had significant alcohol use issues. She notes that she started drinking alcohol on a daily basis about a year and a half ago. She had been drinking one pint a day, typically of vodka. She said prior to this time period she did not have significant use of alcohol or any involvement with other abusive substances. She acknowledges that she smokes marijuana on occasion, though tended to minimize the amount of marijuana she uses. She said that she came to realize that the drinking was not a good thing for her, so approximately November 27 she stopped drinking. She was at home with her parents on November 29. She passed out at home and came to the hospital. She had an admission and was found to have cardiac issues and has been diagnosed with cardiomyopathy. I refer the reader to admission notes for that admission from 11/29 to 12/07/2020. On echocardiogram she was found to have an ejection fraction in the range of less than 20% to 25%. She was tried on various medications, though she had some side effect problems from the standpoint of her cardiac issues. She is currently on metoprolol, losartan, furosemide and . It is noteworthy that the patient was off alcohol from November 27 until January 18. She says around January 18 she started drinking again and has been drinking a half a pint of alcohol per day. The patient acknowledges that she has had long-term struggles with anxiety and depression. It is noteworthy that when I asked her what seemed to precipitate her drinking problems starting at age 34, she said, "I think I started drinking to help cope with adult responsibilities like living on my own." She did not provide much more detail than that. She says that she has had long-term problems with anxiety and depression. She can get into stressed states where she feels her heart is pounding and she has high anxiety. She made some acknowledgement of poor self-esteem, which she attributed to being "the middle child." She indicated that she grew up in a stable home situation where there were no significant stress issues. She had been treated with Wellbutrin at age 18 for depression. She notes that currently she sleeps poorly and says that she has always had a disturbed sleep pattern. She wakes on and off through the night. She does struggle with some loss of energy, motivation and interest. She stated that one of the issues with drinking was that she felt isolated and alone. She had been living independently and has her own apartment, though recently moved back with her parents for support. Other than her most immediate symptoms, she does not have a history of hallucinations or delusional thinking. She acknowledges some panic issues. She does not indicate any history of traumatic events or any posttraumatic issues. She is admitted for further evaluation. SUBSTANCE USE HISTORY: As above. PAST MEDICAL HISTORY: Cardiomyopathy. Please see the above for details as well as hospital notes from 11/29 to 12/07/2020 for details. Abnormal lab work on admission includes potassium 3.1, creatinine 1.05, magnesium 1.0, AST 68, ALT 58. FAMILY / SOCIAL HISTORY: The patient is a high school graduate. She works as a oil and gas specialist. She had been living independently and has her own apartment, though recently she moved in with her parents. She has a sister who is 36 and a brother who is 32. She was for 3 years and is . She has no children. MENTAL STATUS EXAM: Patient sat with some restlessness. She gave fair eye contact. She tended to look down or off in a distance more than not. She answered questions with brief responses. Her thoughts were clear and coherent. She did not say a lot. She was not spontaneous or interactive. She tended to give minimal responses without much detail. Her affect was flat, her mood depressed. She was moderately distressed. There was no indication of thought disorder. She voiced no thoughts of harm. On cognitive exam she was oriented and alert. Recent and remote memory was intact. Attention and concentration were fair. She could give 3/3 objects in 4 minutes. She could spell "world" forward and backwards. Insight was fair at best, judgment fair, fund of knowledge average or somewhat above average. PHYSICAL EXAM: As per medical consultation. ASSESSMENT: This 35-year-old female is diagnosed with major depression and alcohol dependence with acute alcohol withdrawal. In addition, she has a recent diagnosis of cardiomyopathy and is in followup with Cardiology. She has significant alcohol use for the past year and a half. It is noteworthy that the patient stated she started drinking at age 34 "to cope with adult responsibilities," which seemed to be an unusual response for someone at her age. The "hallucinations" she describes are most likely related to decreased REM latency, which may have been induced by Luvox or possibly related to her cardiac medications plus alcohol use. She appears to struggle with poor self-esteem, and social supports appear limited. Strengths include mashpee intelligence. Weakness includes limited insight regarding alcohol use. DIAGNOSES: 1. Major depression, moderate, without psychotic features. 2. Alcohol dependence and acute alcohol withdrawal. 3. Panic disorder. 4. Cardiomyopathy. RECOMMENDATIONS: Patient will be admitted for comprehensive medical, psychiatric and psychosocial evaluation. We will engage the patient in individual and group therapeutic activities. I had an extensive discussion with the patient regarding treatment options. Given that her presentation appears to be in the moderate as opposed to severe range, there might be consideration for just starting an antidepressant, though I reviewed with the patient that antidepressants are not likely to have much benefit in the first 4 to 6 weeks of withdrawing from alcohol. While the patient tended to minimize issues with withdrawal that she believes she is having, when I noted that antipsychotics may be used early on to help ameliorate withdrawal symptoms, the patient stated that that would be her choice of medication at this time. I will start the patient on Zyprexa 5 mg twice a day. I had an extensive discussion with the patient regarding indication, potential side effects and concerns, especially related to metabolics and movement disorder issues. I indicated that short-term use of Zyprexa in the first 4 to 6 weeks of withdrawal would likely help reduce some withdrawal symptoms. I indicated that overall it would be best to use Zyprexa as a short-term medication, and that beyond that, antidepressants may be indicated. It does appear that her sleep disorder is limited and may not be a persistent problem. Tricyclic antidepressants have been used specifically for their benefit to increase REM latency though would not be an indication, given her cardiac issues, even though all low-dose tricyclics are not likely to have much impact on cardiac function. I noted that clonidine is a potential medication that could help ameliorate early alcohol withdrawal symptoms, though that would be something she could discuss with her carpenter repairer, as she has follow-up appointments in place. It is noted that she does have an intake evaluation set up at [facility] in [place] for individual psychotherapy and also has had one contact with the psychiatrist there, so it is likely she has reasonable follow-up options. Given the patient's episodes of apparent panic plus her cardiac issues, I encouraged the patient to consider use of a wearable heart monitor such as an EpiWatch or the like. We will focus on stabilization and discharge planning. NASIR / KARIME: [id number] /
[2021-01-25 12:01] LABS: T4, Free (Free Thyroxine) 1.45 ng/dL (0.78-2.19)
[2021-01-25 17:12] LABS: Chol/HDL Ratio 2.51 Ratio; LDL Cholesterol,Calculated 76.1 mg/dL (0.0-131.0)
[2021-01-25] MEDS: ATORVASTATIN 10 MG TAB PO SCH (20:32)
--- NOTE | 2021-01-26 01:26 | P.CONS ---
History of Present Illness - Reason for Consult Consult date: 01/26/21 - History of Present Illness This is a 35-year-old female with a PMH of EtOH abuse, recently diagnosed nonischemic cardiomyopathy with last EF 20-25%, anxiety, and depression who presents to the emergency room for medication side effect. Patient reports that she was recently started on a new medication by her psychiatrist, fluvoxamine, and that since starting this, she has had very vivid dreams and insomnia. The patient also reports continued anxiety and depression. She reports compliance with her medications at home and has been following up with a vehicle calibration engineer as an outpatient since her diagnosis. The patient reports that she had a relapse with alcohol use which started one week prior to presentation with her last drink on the day of admission. She denied chest discomfort, shortness breath, fever, chills, cough, nausea, vomiting, abdominal pain, diarrhea. The patient's laboratory evaluation was reviewed and was remarkable for potassium of 3.1, magnesium 1.6, total bilirubin 1.4, AST 58, ALT 48, and an unremarkable urine toxicology. Review of systems: Pertinent positives and negatives as discussed in HPI, a complete review of systems was performed and all other systems are negative. Physical examination: General: non toxic, no distress, appears at stated age, overweight Derm: no unusual rashes/lesions no unusual ecchymoses, warm, dry Head: atraumatic, normocephalic, symmetric Eyes: EOMI, no lid lag, anicteric sclera, pupils equal round reactive to light ENT: Nose and ears atraumatic, no thrush, no pharyngeal erythema Neck: No thyromegaly, no cervical lymphadenopathy, trachea midline, supple Mouth: no lip lesion, mucus membranes moist Cardiovascular: S1S2 reg, no murmur, positive posterior tibial pulse bilateral, no edema, capillary refill less than 2 seconds Lungs: CTA bilateral, no rhonchi, no rales , no accessory muscle use Abdominal: soft, nontender to palpation, no guarding, no appreciable organomegaly, normal bowel sounds Ext: no gross muscle atrophy, muscle strength 5 out of 5 in all 4 extremities grossly, no contractures, Neuro: CN II-XI grossly intact, light touch intact all 4 extremities, finger to nose within normal limits, Psych: Alert, oriented, appropriate affect Assessment/plan Hypokalemia -Replace and monitor Abnormal LFTs -Likely secondary to ongoing alcohol use -Strongly advised patient on the importance of cessation from alcohol use Nonischemic cardiomyopathy -Continue with home medications Anxiety and depression medication side effect -As per psychiatry Past Medical History Past Medical History: No Reported History History of Any Multi-Drug Resistant Organisms: None Reported Past Surgical History: No Surgical Hx Reported Past Anesthesia/Blood Transfusion Reactions: No Reported Reaction Smoking Status: Never smoker - Past Family History Father Family Medical History: Hyperlipidemia Medications and Allergies Home Medications Medication Instructions Recorded Confirmed Type Aspirin 81 mg PO DAILY 30 Days #30 tab 12/06/20 01/24/21 Rx Atorvastatin [Lipitor] 10 mg PO HS 30 Days #30 tab 12/06/20 01/24/21 Rx Furosemide [Lasix] 20 mg PO DAILY 30 Days #30 tab 12/06/20 01/24/21 Rx Metoprolol Tartrate [Lopressor] 50 mg PO TID 30 Days #90 tab 12/06/20 01/24/21 Rx Losartan Potassium 50 mg PO DAILY 01/24/21 01/24/21 History Allergies Allergy/AdvReac Type Severity Reaction Status Date / Time No Known Allergies Allergy Verified 01/24/21 12:49 Physical Exam Vitals: Vital Signs Temp Pulse Resp BP 01/25/21 14:33 99 118/66 01/25/21 08:22 115 H 129/86 01/25/21 04:43 96.9 F L 108 H 18 115/72 Results CBC & Chem 7: 01/25/21 08:17 01/25/21 08:17 Labs: Abnormal Lab Results - Last 24 Hours (Table) 01/25/21 01/25/21 Range/Units 08:17 08:17 Sodium 136 L (137-145) mmol/L Potassium 3.1 L (3.5-5.1) mmol/L Chloride 96 L (98-107) mmol/L Glucose 126 H (74-99) mg/dL Total Bilirubin 1.4 H (0.2-1.3) mg/dL AST 58 H (14-36) U/L ALT 48 H (4-34) U/L Triglycerides 155.00 H (0.00-149.00) mg/dL HDL Cholesterol 70.90 H (40.00-60.00) mg/dL Free T3 pg/mL 5.7 H (2.8-5.3) pg/ml
[2021-01-26] MEDS: POTASSIUM CHLORIDE ER 20 MEQ TAB.ER PO SCH ×2 (02:47→05:09)
[2021-01-26] MEDS: NICOTINE 14MG/24HR PATCH TRANSDERM SCH (08:22)
[2021-01-26] MEDS: FUROSEMIDE 20 MG TAB PO SCH (08:23)
[2021-01-26] MEDS: LOSARTAN 50 MG TAB PO SCH (08:23)
[2021-01-26] MEDS: ASPIRIN 81 MG PO SCH (08:23)
[2021-01-26] MEDS: OLANZapine 5 MG TAB PO SCH (08:23)
[2021-01-26] MEDS: METOPROLOL TARTRATE 50 MG TAB PO SCH ×3 (08:23→20:37)
--- NOTE | 2021-01-26 10:43 | P.PN ---
Progress Note - Text Progress Note Date: 01/26/21 Interval History: Patient was seen coming out of her room today and was directable and agreeable to speak with signwriter in the office. Patient was fairly calm and cooperative with signwriter during the conversation and answered questions appropriately. She explained the circumstances of her coming into the hospital and how she was dealing with cardiac issues and being placed on new medications. She states that her psychiatrist put her on fluvoxamine which she states that she began developing side effects including hearing voices and feeling more depressed and sought to come in to the hospital. She states that she has been on Zyprexa since being in the hospital and claims that she is sleeping much better now however still feels that she is lethargic during the day. She claims that she is attempting to go to groups and participate as best she can. She states that she is willing to try new antidepressant medication including Cymbalta which signwriter spoke about. She claims that her appetite. At this time patient denies any suicidal or homical ideations, intent or plan. Patient denies any auditory, visual hallucinations and denies any paranoia or delusions. Patient denies any side effects from the medications and has been compliant with meds. She claims that her anxiety is mildly improved since yesterday. Mental Status Exam: General Appearance: Patient appears to be stated age is alert, directable, and cooperative. Behavior: Patient is calmly seated without any agitated behavior. Speech: Patient's speech is fluent and nonpressured. Mood/Affect: Mood is improving mildly, affect is congruent and constricted. Suicidality/Homicidality: Patient denies having any suicidal or homicidal ideation intent or plan. Perceptions: Patient denies any visual hallucinations and denies any auditory hallucinations Though content/process: There is no evidence of any delusional thought content and thought process is linear and goal-directed. Focused on medications and discharge. Memory and concentration: AOX3, grossly intact for the purposes of this session Judgment and insight: Improving mildly Assessment Major depressive disorder, without psychotic features Generalized anxiety disorder Alcohol use disorder Plan: -Patient continues to meet criteria for inpatient psychiatric admission for symptom stabilization and safety. Patient has signed adult voluntary form and medication consent and was placed in patient's chart. -Medications: We'll start Cymbalta 30 mg daily for mood/anxiety. Decrease Zyprexa to 5 mg daily at bedtime for insomnia/mood adjunct. -When necessary Ativan and Haldol for agitation/aggression. -NRT - not needed as patient does not smoke. -SW on board for discharge planning. Encouraged the patient to participate in milieu. Likely discharge tomorrow back home if patient has improved. she will be following up with Lilia Sharma for psych follow up upon discharge
[2021-01-26] MEDS: DULoxetine HCL 30 MG CAPSULE.DR PO SCH (10:46)
[2021-01-26] MEDS: ATORVASTATIN 10 MG TAB PO SCH (20:36)
[2021-01-26] MEDS ORDERED: OLANZapine 5 MG TAB PO SCH (21:00)
[2021-01-27 07:06] VITALS: BP 130/82; PULSE 101; RESP 18; TEMP 97
[2021-01-27] MEDS: FUROSEMIDE 20 MG TAB PO SCH (08:45)
[2021-01-27] MEDS: DULoxetine HCL 30 MG CAPSULE.DR PO SCH (08:45)
[2021-01-27] MEDS: METOPROLOL TARTRATE 50 MG TAB PO SCH (08:45)
[2021-01-27] MEDS: ASPIRIN 81 MG PO SCH (08:45)
[2021-01-27] MEDS: LOSARTAN 50 MG TAB PO SCH (08:45)
[2021-01-27] MEDS ORDERED: NALTREXONE HCL 50 MG TAB PO SCH (09:45)
--- NOTE | 2021-01-27 09:56 | P.DS ---
Providers Date of admission: 01/24/21 18:03 Expected date of discharge: 01/27/21 Attending physician: Hakeem Davis MD Consults: 01/25/21 15:07 Consult Physician Stat Consulting Provider: Luca Physician Consult Reason/Comments: H & P new admission Do you want consulting provider notified?: Already Contacted Primary care physician: Tiffanie Ramires, DO - Discharge Diagnosis(es) (1) Major depressive disorder without psychotic features Current Visit: Yes Status: Acute Priority: High (2) Generalized anxiety disorder Current Visit: Yes Status: Acute Priority: Medium (3) Alcohol use disorder Current Visit: Yes Status: Acute Priority: High Hospital Course: Admission HPI: Admission note was completed by Dr Villar "the patient is a 35-year-old female. She had been living independently though more recently has resided with her parents. She presented to the ED for evaluation. The patient was having what she called hallucinations which occurred when she woke up for dreaming. She has high anxiety and long-term problems with depression. The patient has not had a prior psychiatric hospitalization. She had recent hospitalization for cardiac issues. She stated that she has had long-term problems with anxiety and depression "most of all my life". She saw a psychiatrist at [facility] in [place] and was started on 01/18 on Luvox. She was uncertain of the dose. She said she stopped Luvox on 01/22 as she was having problems especially at nighttime where she would wake up and feel that she was having hallucinations. She was able to be aware that she had woken up in a dream state and seemed to be continuing in that state while she was awake. She also had noted that in the last couple of days in the daytime she could be watching television and then begin hearing some murmuring that sounded like her parents voice. This would last for less than a few minutes. She said that might have occurred when she may have been drifting off to sleep, though she was not sure about that. Confounding factor is that she has had significant alcohol use issues. She notes that she started drinking alcohol on a daily basis about a year ago. She had been drinking 1 pint a day typically of vodka. She had prior to this time. She did not have significant use of alcohol or any involvement with other abuse of substances. She acknowledges that she smokes marijuana on occasion, though tended to minimize the amount of marijuana she uses. She said that she came to realize that the drinking was not a good thing for her, so apparently November 27 she stop drinking. She was at home with her parents on November 29. She passed out at home and came to the hospital. She had admission and was found to have cardiac issues and has been diagnosed with cardiomyopathy. I refer the reader to admission notes for that admission from 11/29-12/07/20. On echocardiogram she was found to have an ejection fraction in the range of less than 20-25%. She was tried on various medications though she had some side effect problems from the standpoint of her cardiac issues. She is currently on metoprolol, losartan, furosemide and. It was noteworthy that the patient was off alcohol from November 27 until January 18. She says her on January 18 she started drinking again and has been drinking a half pint of vodka alcohol per day. The patient acknowledges that she has had long-term struggles with anxiety and depression. Is now worried that when asked her what seemed to precipitate her drinking problems starting at age 34 she said "I think I started drinking and help cope with adult responsibilities like living on my own". She did not provide much more detail than that. She says that she has had long-term problems with anxiety and depression. She can get into stress dates where she feels her heart is pounding and she has high anxiety. She made some ack nowledgment of poor self-esteem which she attributed to being "the middle child. She indicated that she grew up in a stable home situation where there were no significant stress issues. She had been treated with Wellbutrin at the age of 18 for depression. She notes that currently she's sleeps poorly and says that she has always had a disturbed sleep pattern. She wakes on and off throughout the night. She does struggle with some loss of energy, motivation and interest. She stated that one of the issues with drinking was that she felt isolated and alone. She had been living independently and has her own apartment though recently moved back with her parents for support. Other than her most immediate symptoms she does not have a history of hallucinating or delusional thinking. She notes that acknowledges some panic issues. She does not indicate any history of traumatic events or posttraumatic issues. She has admitted for further evaluation." Hospital course: Upon admission to the unit patient was directable and agreeable to commence treatment and signed adult voluntary form . Patient got along well with other patients on the unit and followed unit protocol. Patient was compliant with the medications and denied any side effects throughout hospital course. Patient was started on Cymbalta 30 mg daily for mood/anxiety. Patient was also started on Zyprexa as a mood adjunct and 4 insomnia. Patient was also started on naltrexone 50 mg daily by mouth for alcohol cravings. Patient spoke of her stressors and engaged in therapy both group and individual. Patient was also seen by medical team for history and physical exam. Patient did have a chest x- ray on 01/24 which showed some stranding atelectasis and no acute cardiopulmonary process. Patient was also noted to have elevated liver enzymes which according to hospitalist was due to chronic alcohol use. Throughout the course of the hospitalization patient gradually improved with regards to mood, anxiety, sleep and became more future oriented with improved insight and judgment. On the day of discharge patient denied any suicidal or homicidal ideations intent or plan denied any auditory or visual hallucinations. Patient endorsed wanting to live for her friends and family. The patient denied any access to guns or weapons. Patient denied any paranoia and did not endorse any delusions. Patient does have a significant history of substance abuse and was counseled on abstaining from all substances including alcohol and marijuana. Patient was offered however declined inpatient substance-abuse rehab. Patient elected to do outpatient substance use treatment program and eventually get into AA meetings. Patient was also counseled on the medications and need for regular compliance and was encouraged to follow-up with their outpatient appointment for mental health and also for primary care. Prior to discharge a family meeting will be arranged by hospital social worker to answer any questions and ensure safety upon discharge. Mental status exam: General Appearance: Patient appears to be stated age is alert, pleasant, and cooperative. Patient is in no acute distress and has improved hygiene and grooming Behavior: Patient is calmly seated without any agitated behavior. Speech: Patient's speech is fluent and nonpressured. Mood/Affect: Patient reports their mood is "[better]", affect is congruent and e uthymic. Suicidality/Homicidality: Patient denies having any suicidal or homicidal ideation intent or plan. Perceptions: Patient denies any auditory or visual hallucinations. Though content/process: There is no evidence of any delusional thought content and thought process is linear and goal-directed. [more future oriented] Memory and concentration: AOX3, grossly intact for the purposes of this session. Can spell "WORLD" backwards correctly. Judgment and insight: [chronically poor, however has] improved with guarded prognosis Impression: Major depressive disorder, without psychotic features Generalized anxiety disorder Alcohol use disorder Plan: -Continue with discharge today as patient has improved and stabilized psychiatrically and is not currently an imminent threat to herself and/or others. [Patient will remain at chronically elevated risk for harm to self and/or others due to her impulsivity and substance abuse.] -Continue medications: Cymbalta 30 mg daily for mood/anxiety, Zyprexa 5 mg daily at bedtime for insomnia/mood adjunct, naltrexone 50 mg by mouth daily for alcohol cravings. -Patient was counseled on the need for medication compliance and appropriate follow-up at mental health and also primary care for medical issues. Patient verbalized understanding and agreed. -Social work to [arrange for and conduct family meeting to ensure safety upon discharge and answer any questions/concerns.] Social work also to arrange for patients follow up appointments for psychiatric care along with follow up with primary care provider. -Patient counseled on abstaining from recreational drugs and marijuana and alcohol. Was informed/educated on the adverse effects on their physical and mental health. [Patient verbally agreed and understood]. [Patient was offered substance abuse treatment however declined at this time and wanted to do outpatient therapy with AA meetings in the near future.] -Patient was instructed to return to the hospital or seek immediate medical care if their psychiatric or medical symptoms do worsen or reoccur. Allergies Allergy/AdvReac Type Severity Reaction Status Date / Time No Known Allergies Allergy Verified 01/24/21 12:49 Laboratory Results WBC 10.6 k/uL (3.8-10.6) 01/25/21 08:17 RBC 3.87 m/uL (3.80-5.40) 01/25/21 08:17 Hgb 12.1 gm/dL (11.4-16.0) 01/25/21 08:17 Hct 36.1 % (34.0-46.0) 01/25/21 08:17 MCV 93.4 fL (80.0-100.0) 01/25/21 08:17 MCH 31.4 pg (25.0-35.0) 01/25/21 08:17 MCHC 33.6 g/dL (31.0-37.0) 01/25/21 08:17 RDW 15.4 % (11.5-15.5) 01/25/21 08:17 Plt Count 257 k/uL (150-450) 01/25/21 08:17 MPV 8.4 01/25/21 08:17 Neutrophils % 69 % 01/25/21 08:17 Lymphocytes % 24 % 01/25/21 08:17 Monocytes % 5 % 01/25/21 08:17 Eosinophils % 0 % 01/25/21 08:17 Basophils % 0 % 01/25/21 08:17 Neutrophils # 7.3 k/uL (1.3-7.7) 01/25/21 08:17 Lymphocytes # 2.5 k/uL (1.0-4.8) 01/25/21 08:17 Monocytes # 0.5 k/uL (0-1.0) 01/25/21 08:17 Eosinophils # 0.0 k/uL (0-0.7) 01/25/21 08:17 Basophils # 0.0 k/uL (0-0.2) 01/25/21 08:17 PT 11.6 sec (9.0-12.0) 01/24/21 12:37 INR 1.1 (<1.2) 01/24/21 12:37 APTT 23.0 sec (22.0-30.0) 01/24/21 12:37 Sodium 136 mmol/L (137-145) L 01/25/21 08:17 Potassium 3.9 mmol/L (3.5-5.1) 01/26/21 07:16 Chloride 96 mmol/L (98-107) L 01/25/21 08:17 Carbon Dioxide 29 mmol/L (22-30) 01/25/21 08:17 Anion Gap 11 mmol/L 01/25/21 08:17 BUN 12 mg/dL (7-17) 01/25/21 08:17 Creatinine 0.88 mg/dL (0.52-1.04) 01/25/21 08:17 Est GFR (CKD-EPI)AfAm >90 (>60 ml/min/1.73 sqM) 01/25/21 08:17 Est GFR (CKD-EPI)NonAf 87 (>60 ml/min/1.73 sqM) 01/25/21 08:17 Glucose 126 mg/dL (74-99) H 01/25/21 08:[address] Glu mg/dL 97 01/25/21 08:17 Hemoglobin A1c 5.0 % (4.0-6.0) 01/25/21 08:17 Calcium 9.0 mg/dL (8.4-10.2) 01/25/21 08:17 Magnesium 1.6 mg/dL (1.6-2.3) 01/25/21 08:17 Total Bilirubin 1.4 mg/dL (0.2-1.3) H 01/25/21 08:17 AST 58 U/L (14-36) H 01/25/21 08:17 ALT 48 U/L (4-34) H 01/25/21 08:17 Alkaline Phosphatase 81 U/L (38-126) 01/25/21 08:17 Troponin I <0.012 ng/mL (0.000-0.034) 01/24/21 12:37 Total Protein 7.6 g/dL (6.3-8.2) 01/25/21 08:17 Albumin 4.3 g/dL (3.5-5.0) 01/25/21 08:17 Triglycerides 155.00 mg/dL (0.00-149.00) H 01/25/21 08:17 Cholesterol 178.00 mg/dL (0.00-200.00) 01/25/21 08:17 LDL Cholesterol, Calc 76.1 mg/dL (0.0-131.0) 01/25/21 08:17 VLDL Cholesterol, Calc 31.00 mg/dL (5.00-40.00) 01/25/21 08:17 HDL Cholesterol 70.90 mg/dL (40.00-60.00) H 01/25/21 08:17 Cholesterol/HDL Ratio 2.51 Ratio 01/25/21 08:17 TSH 1.380 mIU/L (0.465-4.680) 01/25/21 08:17 Free T4 1.45 ng/dL (0.78-2.19) 01/25/21 08:17 Free T3 pg/mL 5.7 pg/ml (2.8-5.3) H 01/25/21 08:17 Urine Color Light Yellow 01/24/21 12:30 Urine Appearance Clear (Clear) 01/24/21 12:30 Urine pH 6.5 (5.0-8.0) 01/24/21 12:30 Ur Specific [place] 1.011 (1.001-1.035) 01/24/21 12:30 Urine Protein Negative (Negative) 01/24/21 12:30 Urine Glucose (UA) Negative (Negative) 01/24/21 12:30 Urine Ketones Negative (Negative) 01/24/21 12:30 Urine Blood Negative (Negative) 01/24/21 12:30 Urine Nitrite Negative (Negative) 01/24/21 12:30 Urine Bilirubin Negative (Negative) 01/24/21 12:30 Urine Urobilinogen <2.0 mg/dL (<2.0) 01/24/21 12:30 Ur Leukocyte Esterase Negative (Negative) 01/24/21 12:30 Urine HCG, Qual Not Detected (Not Detectd) 01/24/21 12:30 Urine Opiates Screen Not Detected (NotDetected) 01/24/21 12:37 Ur Oxycodone Screen Not Detected (NotDetected) 01/24/21 12:37 Urine Methadone Screen Not Detected (NotDetected) 01/24/21 12:37 Ur Propoxyphene Screen Not Detected (NotDetected) 01/24/21 12:37 Ur Barbiturates Screen Not Detected (NotDetected) 01/24/21 12:37 U Tricyclic Antidepress Not Detected (NotDetected) 01/24/21 12:37 Ur Phencyclidine Scrn Not Detected (NotDetected) 01/24/21 12:37 Ur Amphetamines Screen Not Detected (NotDetected) 01/24/21 12:37 U Methamphetamines Scrn Not Detected (NotDetected) 01/24/21 12:37 U Benzodiazepines Scrn Not Detected (NotDetected) 01/24/21 12:37 Urine Cocaine Screen Not Detected (NotDetected) 01/24/21 12:37 U Marijuana (THC) Screen Not Detected (NotDetected) 01/24/21 12:37 Serum Alcohol <10 mg/dL 01/24/21 12:37 Coronavirus (PCR) Not Detected (Not Detectd) 01/24/21 16:22 Vital Signs Temp 97.0 F L 01/27/21 07:06 Pulse 101 H 01/27/21 07:06 Resp 18 01/27/21 07:06 BP 130/82 01/27/21 07:06 Pulse Ox 98 01/24/21 17:00 Patient Condition at Discharge: Stable Plan - Discharge Summary New Discharge Prescriptions: New Naltrexone HCl [Revia] 50 mg PO DAILY 30 Days tab Acetaminophen Tab [Tylenol] 650 mg PO Q4HR PRN tab PRN Reason: MILD Pain/Discomfort DULoxetine HCL [Cymbalta] 30 mg PO DAILY 30 Days capsule OLANZapine [ZyPREXA] 5 mg PO HS 30 Days tab Continue Furosemide [Lasix] 20 mg PO DAILY 30 Days #30 tab Losartan Potassium 50 mg PO DAILY Aspirin 81 mg PO DAILY 30 Days #30 tab Atorvastatin [Lipitor] 10 mg PO HS 30 Days #30 tab Metoprolol Tartrate [Lopressor] 50 mg PO TID 30 Days #90 tab Discharge Medication List Aspirin 81 mg PO DAILY 30 Days #30 tab 12/06/20 [Rx] Atorvastatin [Lipitor] 10 mg PO HS 30 Days #30 tab 12/06/20 [Rx] Furosemide [Lasix] 20 mg PO DAILY 30 Days #30 tab 12/06/20 [Rx] Metoprolol Tartrate [Lopressor] 50 mg PO TID 30 Days #90 tab 12/06/20 [Rx] Losartan Potassium 50 mg PO DAILY 01/24/21 [History] Acetaminophen Tab [Tylenol] 650 mg PO Q4HR PRN tab 01/27/21 [Rx] DULoxetine HCL [Cymbalta] 30 mg PO DAILY 30 Days capsule 01/27/21 [Rx] Naltrexone HCl [Revia] 50 mg PO DAILY 30 Days tab 01/27/21 [Rx] OLANZapine [ZyPREXA] 5 mg PO HS 30 Days tab 01/27/21 [Rx] Follow up Appointment(s)/Referral(s): MORTEZA Padron [Other] - 01/27/21 8:30 am Tiffanie Ramires DO [Primary Care Provider] - 1-2 days Activity/Diet/Wound Care/Special Instructions: Activity and diet as tolerated. Avoid the use of street drugs and alcohol. Take all medications as prescribed. When you are in need of refills on your medications please contact your medical provider and/or outpatient psychiatrist to have this done. Please go to scheduled outpatient appointment for aftercare treatment. If symptoms return or become worse, call the crisis line at and/or go to the nearest emergency room for evaluation Discharge Disposition: HOME SELF-CARE
== END 2021-01-27 13:15 | disposition home or self-care (01) | DRG 885 ==
LOC: EC 10:27 → 3MHU 18:03
PROVIDERS: ADMIT Psychiatry & Neurology Psychiatry; ATTEND Psychiatry & Neurology Psychiatry
DX: F32.1 Major depressive disorder, single episode, moderate (principal); I42.8 Other cardiomyopathies; F10.239 Alcohol dependence with withdrawal, unspecified; J98.11 Atelectasis; Z23 Encounter for immunization; Z20.822 Contact with and (suspected) exposure to COVID-19; F41.1 Generalized anxiety disorder; E87.6 Hypokalemia; D72.829 Elevated white blood cell count, unspecified; F12.90 Cannabis use, unspecified, uncomplicated; Z79.82 Long term (current) use of aspirin; Z79.899 Other long term (current) drug therapy; Z83.49 Family history of other endocrine, nutritional and metabolic diseases; R74.01 Elevation of levels of liver transaminase levels; G47.00 Insomnia, unspecified
CPT/HCPCS: 36415; 71046; 80053; 80061; 80306; 80320; 81003; 81025; 83036; 83735; 84132; 84439; 84443; 84481; 84484; 85025; 85610; 85730; 87635; 90686; 90732; 93005; 96361; 96374; 99285